=== PATIENT | male | born 1955 | race Caucasian/White ===

== ENCOUNTER 2016-08-23 22:35 | Emergency (ER) | payer OTHER ==
[~2016-08-23] VITALS: Ht 160 cm; Wt 65.3 kg
[~2016-08-23 22:35] MED LIST: CALC600T10 PO; CITA20TA4 PO; CYCL10TA PO; VITA50003 PO; ZOCO20TA PO
[2016-08-23 22:36] VITALS: BP 139/70
== END 2016-08-24 00:01 | disposition left against medical advice (07) ==
LOC: M ED 23:36
DX: M79.673 Pain in unspecified foot (principal)

== ENCOUNTER 2016-08-29 02:06 | Emergency (ER) | payer OTHER ==
[~2016-08-29] VITALS: Ht 160 cm; Wt 65.3 kg
[2016-08-29 07:39] VITALS: BP 108/56
== END 2016-08-29 07:40 | disposition home or self-care (01) ==
LOC: M ED 05:49
DX: H93.11 Tinnitus, right ear (principal); F17.200 Nicotine dependence, unspecified, uncomplicated; Z79.899 Other long term (current) drug therapy; Z88.8 Allergy status to other drugs, medicaments and biological substances

== ENCOUNTER → 2017-06-26 | Outpatient (CLI) | payer OTHER ==
[2017-06-26 10:36] LABS: HEMATOCRIT 45.3 % (42.0-52.0); HEMOGLOBIN 15.4 g/dl (14.0-18.0); MEAN CORPUSCULAR HEMOGLOBIN 32.4 pg (27.0-33.0); MEAN CORPUSCULAR VOLUME 95.2 fl (80.0-96.0); PLATELET COUNT, AUTOMATED 336 10^3/uL (150-450); RED BLOOD COUNT 4.76 10^6/uL (4.30-6.10); RED CELL DISTRIBUTION WIDTH 13.4 % (11.5-14.5); WHITE BLOOD COUNT 13.4 10^3/uL (4.0-10.0)
[2017-06-26 11:10] LABS: TOTAL 25(OH) VITAMIN D 30.4 NG/ML (30.0-100.0)
== END ==
LOC: M LAB 10:12
DX: F32.89 Other specified depressive episodes (principal); E55.9 Vitamin D deficiency, unspecified
CPT/HCPCS: 84443

== ENCOUNTER → 2017-07-10 | Outpatient (REF) | LOC: M SMT 08:08 | DX: M54.5 Low back pain (principal) ==

== ENCOUNTER 2018-03-25 13:53 | Emergency (ER) | payer OTHER ==
[2018-03-25 14:44] LABS: BASO % 0.2 % (0.0-1.0); EOS # 0.1 10^3/uL (0.0-0.50); EOS % 0.6 % (0.0-3.0); HEMATOCRIT 44.7 % (42.0-52.0); HEMOGLOBIN 15.1 g/dl (13.5-17.5); IMMATURE GRANULOCYTE % 0.5 % (0-3.0); LYMPH # 1.1 10^3/uL (1.5-4.5); LYMPH % 10.1 % (24.0-44.0); MEAN CORPUSCULAR HEMOGLOBIN 31.5 pg (27.0-33.0); MEAN CORPUSCULAR HGB CONC 33.8 g/dl (32.0-36.5); MEAN CORPUSCULAR VOLUME 93.1 fl (80.0-96.0); MONO # 0.9 10^3/uL (0.0-0.8); MONO % 7.8 % (0.0-5.0); NEUTROPHILS # 8.8 10^3/uL (1.8-7.7); NEUTROPHILS % 80.8 % (36.0-66.0); PLATELET COUNT, AUTOMATED 305 10^3/uL (150-450); RED CELL DISTRIBUTION WIDTH 13.5 % (11.5-14.5); WHITE BLOOD COUNT 10.8 10^3/uL (4.0-10.0)
[2018-03-25 14:50] LABS: ALBUMIN 3.2 GM/DL (3.2-5.2); ALBUMIN/GLOBULIN RATIO 0.89 (1.00-1.93); ALKALINE PHOSPHATASE 87 U/L (45-117); ALT/SGPT 17 U/L (12-78); ANION GAP 8 MEQ/L (8-16); AST/SGOT 16 U/L (7-37); BILIRUBIN,DIRECT 0.1 MG/DL (0.0-0.2); BILIRUBIN,TOTAL 0.4 MG/DL (0.2-1.0); BLOOD UREA NITROGEN 12 MG/DL (7-18); CALCIUM LEVEL 8.4 MG/DL (8.8-10.2); CARBON DIOXIDE LEVEL 23 MEQ/L (21-32); CHLORIDE LEVEL 109 MEQ/L (98-107); CREATININE FOR GFR 1.13 MG/DL (0.70-1.30); GLOMERULAR FILTRATION RATE > 60.0 (>49); GLUCOSE, FASTING 91 MG/DL (70-100); LIPASE 61 U/L (73-393); POTASSIUM SERUM 4.1 MEQ/L (3.5-5.1); SODIUM LEVEL 140 MEQ/L (136-145); TOTAL PROTEIN 6.8 GM/DL (6.4-8.2)
[2018-03-25] MEDS ORDERED: ISOVUE-370 76% 100ML VIAL (Q9967) As Ordered (14:58)
[2018-03-25] MEDS: NS 1,000 ML IV (14:59)
[2018-03-25] MEDS: MORPHINE 4 MG/ML 1ML VIAL/SYRINGE (J2270) IV (15:00)
== END 2018-03-25 16:01 | disposition home or self-care (01) ==
LOC: M ED 13:53
DX: R10.9 Unspecified abdominal pain (principal); F41.9 Anxiety disorder, unspecified; F32.9 Major depressive disorder, single episode, unspecified
CPT/HCPCS: J2270

== ENCOUNTER 2018-03-27 17:12 | Emergency (ER) | payer OTHER ==
[2018-03-27 18:26] LABS: BASO % 0.2 % (0.0-1.0); EOS # 0.1 10^3/uL (0.0-0.50); EOS % 1.4 % (0.0-3.0); HEMATOCRIT 41.6 % (42.0-52.0); HEMOGLOBIN 14.2 g/dl (13.5-17.5); IMMATURE GRANULOCYTE % 0.5 % (0-3.0); LYMPH # 1.2 10^3/uL (1.5-4.5); LYMPH % 13.7 % (24.0-44.0); MEAN CORPUSCULAR HEMOGLOBIN 31.8 pg (27.0-33.0); MEAN CORPUSCULAR HGB CONC 34.1 g/dl (32.0-36.5); MEAN CORPUSCULAR VOLUME 93.1 fl (80.0-96.0); MONO # 0.7 10^3/uL (0.0-0.8); MONO % 8.1 % (0.0-5.0); NEUTROPHILS # 6.6 10^3/uL (1.8-7.7); NEUTROPHILS % 76.1 % (36.0-66.0); PLATELET COUNT, AUTOMATED 303 10^3/uL (150-450); RED BLOOD COUNT 4.47 10^6/uL (4.30-6.10); RED CELL DISTRIBUTION WIDTH 13.3 % (11.5-14.5); WHITE BLOOD COUNT 8.7 10^3/uL (4.0-10.0)
[2018-03-27] MEDS: NS 1,000 ML IV (18:27)
[2018-03-27] MEDS: MORPHINE 4 MG/ML 1ML VIAL/SYRINGE (J2270) IV (18:28)
[2018-03-27 18:30] LABS: PROTHROMBIN TIME 13.3 SECONDS (12.1-14.4)
[2018-03-27 18:31] LABS: PARTIAL THROMBOPLASTIN TIME 33.2 SECONDS (25.4-37.6)
[2018-03-27 18:33] LABS: LACTIC ACID SEPSIS PROTOCOL 1.3 MMOL/L (0.4-2.0)
[2018-03-27 18:48] LABS: ALBUMIN 3.7 GM/DL (3.2-5.2); ALBUMIN/GLOBULIN RATIO 1.19 (1.00-1.93); ALKALINE PHOSPHATASE 82 U/L (45-117); ALT/SGPT 19 U/L (12-78); ANION GAP 8 MEQ/L (8-16); AST/SGOT 21 U/L (7-37); BILIRUBIN,DIRECT < 0.1 MG/DL (0.0-0.2); BILIRUBIN,TOTAL 0.4 MG/DL (0.2-1.0); BLOOD UREA NITROGEN 13 MG/DL (7-18); CALCIUM LEVEL 8.9 MG/DL (8.8-10.2); CARBON DIOXIDE LEVEL 24 MEQ/L (21-32); CHLORIDE LEVEL 105 MEQ/L (98-107); GLOMERULAR FILTRATION RATE > 60.0 (>49); GLUCOSE, FASTING 92 MG/DL (70-100); LDH LACTATE DEHYDROGENASE 215 U/L (87-241); LIPASE 63 U/L (73-393); POTASSIUM SERUM 3.7 MEQ/L (3.5-5.1); SODIUM LEVEL 137 MEQ/L (136-145); TOTAL PROTEIN 6.8 GM/DL (6.4-8.2)
[2018-03-27] MEDS: methylPREDNISolone INJ 125 MG/2 ML VIAL (J2930) IV (18:55)
[2018-03-27] MEDS: diphenhydrAMINE INJ 50MG/ML VIAL (J1200) IV (18:55)
[2018-03-27] MEDS: READI-CAT 2 PO ×2 (18:55→19:30)
[2018-03-27 20:38] LABS: KETONE, URINE AUTO RFX NEGATIVE (NEGATIVE); LEUKOCYTE ESTERASE UR AUTO RFX NEGATIVE (NEGATIVE); NITRITE, URINE AUTO RFX NEGATIVE (NEGATIVE); RBC, URINE AUTO RFX 0 /HPF (0-3); SPECIFIC GRAVITY UR AUTO RFX 1.003 (1.002-1.035); SQUAM EPITHELIAL CELL UR AURFX 0 /HPF (0-6); WBC, URINE AUTO RFX 0 /HPF (0-3)
[2018-03-27] MEDS ORDERED: ISOVUE-370 76% 100ML VIAL (Q9967) As Ordered (20:43)
== END 2018-03-27 22:46 | disposition home or self-care (01) ==
LOC: M ED 17:12
DX: C78.6 Secondary malignant neoplasm of retroperitoneum and peritoneum (principal); R19.7 Diarrhea, unspecified; F41.9 Anxiety disorder, unspecified; F32.9 Major depressive disorder, single episode, unspecified; Z87.891 Personal history of nicotine dependence; Z80.0 Family history of malignant neoplasm of digestive organs; Z88.8 Allergy status to other drugs, medicaments and biological substances; Z79.899 Other long term (current) drug therapy
CPT/HCPCS: J2270

== ENCOUNTER → 2018-04-17 | Outpatient (CLI) | payer OTHER ==
[~2018-04-17] MED LIST changes: -CALC600T10 PO; +CALC600T31 PO; +NORCOTAB PO; +PANT40TA3 PO; +PERC5TAB12 PO; +TRAM50TA2 PO; -VITA50003 PO; +VITA50005 PO
[2018-04-17 17:55] LABS: HEMATOCRIT 45.1 % (42.0-52.0); HEMOGLOBIN 15.1 g/dl (13.5-17.5); MEAN CORPUSCULAR HEMOGLOBIN 31.1 pg (27.0-33.0); MEAN CORPUSCULAR HGB CONC 33.5 g/dl (32.0-36.5); MEAN CORPUSCULAR VOLUME 92.8 fl (80.0-96.0); PLATELET COUNT, AUTOMATED 397 10^3/uL (150-450); RED BLOOD COUNT 4.86 10^6/uL (4.30-6.10); WHITE BLOOD COUNT 11.3 10^3/uL (4.0-10.0)
== END ==
LOC: M LAB 17:31
PROVIDERS: ATTEND Family Medicine
DX: K92.0 Hematemesis (principal)

== ENCOUNTER 2018-04-26 10:42 | Day surgery (SDC) | payer OTHER ==
[~2018-04-26] VITALS: Ht 160 cm; Wt 60.8 kg
[~2018-04-26 10:42] MED LIST changes: +LIDOCAINE 2% INJ 100 MG/5 ML SDV (FOR ANES.) As Ordered ONE; -NORCOTAB PO; -PANT40TA3 PO; +PROPOFOL 200 MG/20 ML VIAL As Ordered ONE; -TRAM50TA2 PO; +fentaNYL 100 MCG/2 ML INJECTION (J3010) As Ordered ONE
[2018-04-26] MEDS ORDERED: NS 1,000 ML IV ONE (11:00)
[2018-04-26] MEDS ORDERED: TRAM50TA2 PO ×2 (12:06)
[2018-04-26] MEDS ORDERED: PANT40TA3 PO (12:06)
[2018-04-26] MEDS ORDERED: ePHEDrine SULFATE 25 MG/5 ML(5MG/ML) SYRINGE As Ordered ONE (14:33)
--- NOTE | 2018-04-26 15:17 | ROOR ---
Patient Name: Jerzy Remy Procedure Date: 04/26/2018 2:04 PM Date of : 1955 Age: 62 Room: [facility] Gender: Male Note Status: Finalized Procedure: Upper GI endoscopy Indications: Abnormal CT of the GI tract, Patient with abdominal pain and CT suggesting carcinomatosis Providers: Aravind Mcginnis MD Referring MD: Michael Garcia DO Requesting Provider: Medicines: Monitored Anesthesia Care Complications: No immediate complications. Procedure: Pre-Anesthesia Assessment: - Prior to the procedure, a History and Physical was performed, and patient medications and allergies were reviewed. The patient is competent. The risks and benefits of the procedure and the sedation options and risks were discussed with the patient. All questions were answered and informed consent was obtained. Patient identification and proposed procedure were verified by the physician, the nurse and the meeting facilitator in the procedure room. Mental Status Examination: alert and oriented. CV Examination: regular rate and rhythm. Prophylactic Antibiotics: The patient does not require prophylactic antibiotics. Prior Anticoagulants: The patient has taken no previous anticoagulant or antiplatelet agents. ASA Grade Assessment: II - A patient with mild systemic disease. After reviewing the risks and benefits, the patient was deemed in satisfactory condition to undergo the procedure. The anesthesia plan was to use monitored anesthesia care (MAC). Immediately prior to administration of medications, the patient was re-assessed for adequacy to receive sedatives. The heart rate, respiratory rate, oxygen saturations, blood pressure, adequacy of pulmonary ventilation, and response to care were monitored throughout the procedure. The physical status of the patient was re-assessed after the procedure. The Endoscope was introduced through the mouth, and advanced to the second part of duodenum. The upper GI endoscopy was accomplished without difficulty. The patient tolerated the procedure well. Findings: Patchy mucosal changes characterized by consistent with ectopic gastric mucosa were found in the proximal esophagus. The entire examined stomach was normal. The first portion of the duodenum and second portion of the duodenum were normal. 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 - Normal stomach. - Normal first portion of the duodenum and second portion of the duodenum. - No specimens collected. Recommendation: - Discharge patient to home. - Resume previous diet. - Continue present medications. Aravind Mcginnis MD 04/26/2018 3:16:50 PM Number of Addenda: 0 Note Initiated On: 04/26/2018 2:04 PM Estimated Blood Loss: Estimated blood loss: none.
--- NOTE | 2018-04-26 15:21 | ROOR ---
Patient Name: Jerzy Remy Procedure Date: 04/26/2018 2:10 PM Date of : 1955 Age: 62 Room: [facility] Gender: Male Note Status: Finalized Procedure: Colonoscopy Indications: Abnormal CT of the GI tract, Abdominal pain with CT suggesting carcinomatosis Providers: Aravind Mcginnis MD Referring MD: Michael Garcia DO Requesting Provider: Medicines: Monitored Anesthesia Care Complications: No immediate complications. Procedure: Pre-Anesthesia Assessment: - Prior to the procedure, a History and Physical was performed, and patient medications and allergies were reviewed. The patient is competent. The risks and benefits of the procedure and the sedation options and risks were discussed with the patient. All questions were answered and informed consent was obtained. Patient identification and proposed procedure were verified by the physician, the nurse and the commercial real estate lender in the procedure room. Mental Status Examination: alert and oriented. CV Examination: regular rate and rhythm. Prophylactic Antibiotics: The patient does not require prophylactic antibiotics. Prior Anticoagulants: The patient has taken no previous anticoagulant or antiplatelet agents. ASA Grade Assessment: II - A patient with mild systemic disease. After reviewing the risks and benefits, the patient was deemed in satisfactory condition to undergo the procedure. The anesthesia plan was to use monitored anesthesia care (MAC). Immediately prior to administration of medications, the patient was re-assessed for adequacy to receive sedatives. The heart rate, respiratory rate, oxygen saturations, blood pressure, adequacy of pulmonary ventilation, and response to care were monitored throughout the procedure. The physical status of the patient was re-assessed after the procedure. The Colonoscope [id number] #[id number] was introduced through the anus and advanced to the cecum, identified by appendiceal orifice and ileocecal valve. The colonoscopy was performed without difficulty. The patient tolerated the procedure well. The quality of the bowel preparation was excellent. Findings: The perianal and digital rectal examinations were normal. The colon (entire examined portion) appeared normal. Impression: - The entire examined colon is normal. - No specimens collected. Recommendation: - Discharge patient to home. - Resume previous diet. - Continue present medications. Aravind Mcginnis MD 04/26/2018 3:21:34 PM Number of Addenda: 0 Note Initiated On: 04/26/2018 2:10 PM Estimated Blood Loss: Estimated blood loss: none.
[2018-04-26 15:26] VITALS: BP 102/58
== END 2018-04-26 15:41 | disposition home or self-care (01) ==
LOC: M OPP 10:42
PROVIDERS: ATTEND Surgery
DX: R93.3 Abnormal findings on diagnostic imaging of other parts of digestive tract (principal); R10.9 Unspecified abdominal pain; G47.30 Sleep apnea, unspecified; Z88.4 Allergy status to anesthetic agent
CPT/HCPCS: 43235; 45378; J3010

== ENCOUNTER 2018-04-27 23:38 | Observation (INO) | payer OTHER ==
[~2018-04-27] VITALS: Ht 160 cm; Wt 68.0 kg
[~2018-04-27 23:38] MED LIST changes: -LIDOCAINE 2% INJ 100 MG/5 ML SDV (FOR ANES.) As Ordered ONE; +PANT40TA3 PO; -PROPOFOL 200 MG/20 ML VIAL As Ordered ONE; +TRAM50TA2 PO; -fentaNYL 100 MCG/2 ML INJECTION (J3010) As Ordered ONE
[2018-04-28] MEDS ORDERED: NS 1,000 ML IV ONE
[2018-04-28] MEDS ORDERED: ONDANSETRON 4MG/2ML VIAL (J2405) IV ONE
[2018-04-28] MEDS ORDERED: ISOVUE-370 76% 100ML VIAL (Q9967) As Ordered ONE (00:07)
[2018-04-28 00:15] LABS: BASO # 0.1 10^3/uL (0.0-0.2); BASO % 0.5 % (0.0-1.0); EOS # 0.4 10^3/uL (0.0-0.50); EOS % 2.7 % (0.0-3.0); HEMATOCRIT 43.3 % (42.0-52.0); HEMOGLOBIN 14.8 g/dl (13.5-17.5); LYMPH # 1.7 10^3/uL (1.5-4.5); LYMPH % 13.4 % (24.0-44.0); MEAN CORPUSCULAR HEMOGLOBIN 31.6 pg (27.0-33.0); MEAN CORPUSCULAR HGB CONC 34.2 g/dl (32.0-36.5); MEAN CORPUSCULAR VOLUME 92.3 fl (80.0-96.0); MONO # 0.9 10^3/uL (0.0-0.8); MONO % 7.3 % (0.0-5.0); NEUTROPHILS # 9.7 10^3/uL (1.8-7.7); NEUTROPHILS % 75.6 % (36.0-66.0); PLATELET COUNT, AUTOMATED 388 10^3/uL (150-450); RED BLOOD COUNT 4.69 10^6/uL (4.30-6.10); WHITE BLOOD COUNT 12.9 10^3/uL (4.0-10.0)
[2018-04-28] MEDS: MORPHINE 4 MG/ML 1ML VIAL/SYRINGE (J2270) IV PRN ×2 (00:28→02:17)
[2018-04-28 00:35] LABS: ALBUMIN 3.5 GM/DL (3.2-5.2); ALT/SGPT 16 U/L (12-78); BILIRUBIN,DIRECT < 0.1 MG/DL (0.0-0.2); BILIRUBIN,TOTAL 0.2 MG/DL (0.2-1.0); BLOOD UREA NITROGEN 9 MG/DL (7-18); CARBON DIOXIDE LEVEL 27 MEQ/L (21-32); CHLORIDE LEVEL 108 MEQ/L (98-107); GLOMERULAR FILTRATION RATE > 60.0 (>49); GLUCOSE, FASTING 96 MG/DL (70-100); LIPASE 70 U/L (73-393); POTASSIUM SERUM 3.9 MEQ/L (3.5-5.1); SODIUM LEVEL 143 MEQ/L (136-145); TOTAL PROTEIN 6.6 GM/DL (6.4-8.2)
[2018-04-28 00:37] LABS: INR 0.93; PARTIAL THROMBOPLASTIN TIME 33.9 SECONDS (25.4-37.6); PROTHROMBIN TIME 12.5 SECONDS (12.1-14.4)
--- NOTE | 2018-04-28 01:11 | REPVR ---
EXAM: CT Abdomen and Pelvis With Contrast EXAM DATE/TIME: 04/27/2018 11:50 PM CLINICAL HISTORY: 62 years old, male; Pain; Abdominal pain; Generalized; Patient HX: Recent colonoscopy; Additional info: Abd pain, recent colonoscopy TECHNIQUE: Axial computed tomography images of the abdomen and pelvis with intravenous contrast. All CT scans at this facility use at least one of these dose optimization techniques: automated exposure control; mA and/or kV adjustment per patient size (includes targeted exams where dose is matched to clinical indication); or iterative reconstruction. Coronal and sagittal reformatted images were created and reviewed. CONTRAST: 100 ml of iso administered intravenously. COMPARISON: CT ABD/PEL W/IV ORAL CONTRAS 03/27/2018 8:41 PM FINDINGS: Lower thorax: Minimal bibasilar bullous change. ABDOMEN: Liver: Normal. No mass. Gallbladder and bile ducts: Normal. No calcified stones. No ductal dilation. Pancreas: Normal. No ductal dilation. Spleen: Normal. No splenomegaly. Adrenals: Normal. No mass. Kidneys and ureters: There is a left renal cyst measuring up to 20 mm. Stomach and bowel: There are some mildly distended segments of small bowel in the left pelvis are likely material and wall thickening. This is adjacent to a segment which demonstrates all thickening and is collapsed. Other segments borderline in size. Some degree of obstruction is suggested and findings may reflect enteritis, however, serosal invasion by peritoneal carcinomatosis would certainly be a consideration. Appendix: The appendix is not definitely seen although there may be partial visualization of the origin. There is induration and confluence between bowel segments in the lower pelvis in the area of the appendix, bladder and adjacent small bowel segments. There is minimal fluid adjacent to the rectum which may be loculated. PELVIS: Bladder: Within normal limits but is confluent with some adjacent structures. Reproductive: Unremarkable as visualized. ABDOMEN and PELVIS: Intraperitoneal space: Multiple lobular and somewhat ill-defined nodules throughout the omentum with suggestion of surrounding induration. The mesentery also demonstrates ill-defined nodules and slight induration. Bones/joints: Mild degenerative changes of the lumbar spine. Soft tissues: Unremarkable. Vasculature: Normal. No abdominal aortic aneurysm. Lymph nodes: Normal. No enlarged lymph nodes. IMPRESSION: 1. Omental and mesenteric infiltration and nodularity which appears increased overall since 03/27/2018 consistent with peritoneal carcinomatosis. 2. Multiple segments of small bowel wall thickening with some associated dilated segments containing stool-like material which has the appearance of enteritis, however, serosal implantation by carcinomatosis is suspected with some secondary obstruction which appears increased since the prior study. 3. There is confluence around the tip of the cecum, urinary bladder and adjacent small bowel segments which suggests the possibility of carcinoid as a source. 4. Minimal peritoneal fluid which is increased since the prior study and may be loculated adjacent to the rectum. Electronically signed by: Uriel Rainey On 04/28/2018 01:10:45 AM
[2018-04-28] MEDS ORDERED: PIPERACILLIN/TAZOBACTAM SOD 3.375 GM in D5W MINI-BAG PLUS 50 ML IV ONE (02:30)
[2018-04-28] MEDS ORDERED: MORPHINE 4 MG/ML 1ML VIAL/SYRINGE (J2270) IV PRN (02:45)
[2018-04-28 03:45] VITALS: BP 126/71
[2018-04-28] MEDS: KETOROLAC 30 MG/ML VIAL (J1885) IV PRN ×2 (04:14→10:22)
[2018-04-28 06:00] VITALS: BP 109/61
[2018-04-28] MEDS ORDERED: ONDANSETRON 4MG/2ML VIAL (J2405) IV PRN (12:30)
[2018-04-28] MEDS: CitaloPRAM (CeleXA) 20 MG TAB PO SCH (13:26)
[2018-04-28] MEDS: SENOKOT S TAB PO SCH ×2 (13:26→21:06)
[2018-04-28] MEDS: NORCO, ANEXSIA 5/325MG TABLET (HYDROcodone/ACETAMINOPHEN) PO PRN ×2 (13:27→20:05)
[2018-04-28] MEDS: HEPARIN SOD (PORCINE) 5000 UNITS/ML VIAL SC SCH ×2 (13:27→21:06)
[2018-04-28 14:00] VITALS: BP 111/59
[2018-04-28] MEDS: IBUPROFEN 800 MG TAB PO SCH (17:36)
[2018-04-28 22:00] VITALS: BP 130/72
[2018-04-29] MEDS: NORCO, ANEXSIA 5/325MG TABLET (HYDROcodone/ACETAMINOPHEN) PO PRN ×2 (00:43→05:48)
[2018-04-29] MEDS: IBUPROFEN 800 MG TAB PO SCH ×2 (01:30→09:19)
[2018-04-29] MEDS: HEPARIN SOD (PORCINE) 5000 UNITS/ML VIAL SC SCH (05:47)
[2018-04-29 06:00] VITALS: BP 108/60
--- NOTE | 2018-04-29 08:52 | HPE ---
DATE OF ADMISSION: 04/28/2018 CHIEF COMPLAINT: Abdominal pain. HISTORY OF PRESENT ILLNESS: The patient is 62-year-old male patient of Dr. Mcginnis's who underwent colonoscopy on . He has a recent history of increasing persistent abdominal pains. Had a CT scan done at the end of March showing possible carcinomatosis, therefore, he was seen by Dr. Mcginnis for upper and lower endoscopy on to look for a source of this. Apparently the colonoscopy and EGD were uneventful, no obvious signs of any lesions, therefore, the plan was just followup for a CT-guided biopsy this coming Monday in radiology. However, overnight he has had increasing abdominal pains so he came into the emergency room for evaluation. CT does not show any perforation of bowel but there is some free fluid in the left abdomen that is greater than on previous CT scan and because of his uncontrolled abdominal pains I was asked to admit him. He has been having some increasing difficulty tolerating foods, abdominal bloating, nausea, and occasional emesis. No fevers or chills. He is still having bowel movements but they are small and loose and his abdominal pain has been getting progressively worse. He is on tramadol outpatient but that is not controlling his pain at all anymore. PAST MEDICAL HISTORY: Anxiety, vitamin D deficiency, hypercholesterolemia. PAST SURGICAL HISTORY: Right ankle surgery, left shoulder surgery, right shoulder surgery, foot surgery. FAMILY HISTORY: Noncontributory. SOCIAL HISTORY: Former tobacco user, no current smoking. Denies drug or alcohol abuse. REVIEW OF SYSTEMS: Pertinent positives as stated in the history of present illness. PHYSICAL EXAMINATION: GENERAL: Alert and oriented times three. No acute distress. VITALS: Temperature 97.2, pulse 53, respirations 18, blood pressure 126/71, pulse ox 98% on 2 liters nasal cannula. HEENT: Pupils equal round react to light accommodation. HEART: S1, S2 regular rate and rhythm. LUNGS: Clear to bilaterally. ABDOMEN: Soft, nontender, nondistended. EXTREMITIES: No clubbing, cyanosis or edema. LABORATORY DATA: White count 12.9, hemoglobin 14.8, platelets 388, lactic acid 3.2. Followup was down to 0.7 after 4 hours, potassium 3.9, creatinine 1.1. IMAGING: CT abdomen and pelvis showed omental and mesenteric infiltration nodularity which appears increased overall from the CAT scan on 03/27 of this year. Multiple segments of small bowel wall thickening with some associated dilated segments containing stool like material which has the appearance of enteritis, however, serosal implantation by carcinomatosis suspected with some secondary obstruction that appears increased from prior study. There is confluence around the tip of the cecum, urinary bladder, and adjacent small bowel segments which suggest the possibility of a carcinoid as a source. Minimal peritoneal fluid which has increased since prior study and may be loculated adjacent to the rectum. ASSESSMENT AND PLAN: The patient 62-year-old male with uncontrolled abdominal pain status post colonoscopy on he came into the emergency room (ER) for concerns of possible perforation from his colonoscopy, however, there is no signs of any the injury on his CAT scan. CT does, however, show progression of his carcinomatosis and intra-abdominal disease from previous scan a month ago. RECOMMENDATIONS: Admit him overnight to observation, keep him on regular diet and pain control. I will work on getting his pain controlled, switch him from IV to by mouth medications and then once he is controlled he will be discharged home to continue with his workup as an outpatient. All of his questions were answered.
[2018-04-29] MEDS ORDERED: NORCOTAB PO (08:59)
[2018-04-29] MEDS: SENOKOT S TAB PO SCH (09:18)
[2018-04-29] MEDS: CitaloPRAM (CeleXA) 20 MG TAB PO SCH (09:18)
--- NOTE | 2018-04-30 16:26 | DSES ---
DATE OF ADMISSION: 04/28/2018 DATE OF DISCHARGE: 04/29/2018 ADMISSION DIAGNOSIS: Abdominal pain. DISCHARGE DIAGNOSIS: Abdominal pain with peritoneal carcinomatosis. HOSPITAL COURSE: The patient is a 62-year-old male who presented in the late evening of 04/27/2018 to into the emergency room with complaints of abdominal pains status post colonoscopy on . Imaging was obtained of the abdomen which showed peritoneal carcinomatosis, which he had known from a CAT scan a month ago and that was the reason why they did the colonoscopy. He has had persistent pains for over a month. This current CAT scan shows progression of his disease from previous, but no signs of any perforation status post colonoscopy. He was switched over from tramadol at home to [place]. His pain is currently well-controlled. Plan is to discharge home today. He will followup with oncology for a biopsy this coming Monday and will followup with Dr. Mcginnis in the office as needed.
== END 2018-04-29 10:15 | disposition home or self-care (01) ==
LOC: M ED 23:38 → EDBD 23:38 → M ED INP 04-28 02:20 → M MS5PR 04-28 03:42
PROVIDERS: ADMIT Surgery; ATTEND Surgery
DX: C48.2 Malignant neoplasm of peritoneum, unspecified (principal); R10.9 Unspecified abdominal pain; E78.00 Pure hypercholesterolemia, unspecified; E55.9 Vitamin D deficiency, unspecified; Z87.891 Personal history of nicotine dependence; Z79.899 Other long term (current) drug therapy
CPT/HCPCS: 36415; 74177; 80048; 80076; 83605; 83690; 85025; 85610; 85730; 87040; 93041; 96372; 96374; 96375; 96376; 99285; J1885; J2270; J2405; J2543; Q9967

== ENCOUNTER → 2018-05-02 | Outpatient (CLI) | payer OTHER ==
[~2018-05-02] MED LIST changes: +GASTROGRAFIN SOLUTION 30ML (Q9963) As Ordered ONE; +LIDOCAINE 1% MDV 20ML VIAL As Ordered ONE; +NORCOTAB PO
[2018-05-02 10:11] LABS: INR 0.98; PROTHROMBIN TIME 13.1 SECONDS (12.1-14.4)
[2018-05-02 10:12] LABS: PARTIAL THROMBOPLASTIN TIME 39.8 SECONDS (25.4-37.6)
--- NOTE | 2018-05-02 18:34 | REP ---
The procedure was performed under the personal supervision of Dr. Batista. The patient has a history of omental and mesenteric infiltration and nodularity seen on a previous CT scan dated 04/28/2018. A nodule in the anterior mid abdomen was selected for biopsy. The risks and benefits of the procedure were explained to the patient and informed consent was obtained. The peritoneal nodule was localized using CT guidance. The skin was prepped and draped in a sterile fashion. 1% lidocaine was used as a local anesthetic. Using CT guidance a 17/18 gauge coaxial needle biopsy system was inserted and advanced into the nodule. Six core biopsy samples were obtained and sent to lab. The patient tolerated the procedure well and there were no immediate complications. After the appropriate amount of monitored convalescence the patient was discharged from the department. Reviewed by LIBERTAD Bennett 05/02/2018 04:37 P Electronically Signed by Wagner Batista MD 05/02/2018 06:26 P
== END ==
LOC: M RADPRO 08:51 → M LAB 08:51
PROVIDERS: ATTEND Surgery
DX: K66.8 Other specified disorders of peritoneum (principal)
CPT/HCPCS: 36415; 49180; 77012; 85610; 85730; 88305; Q9963

== ENCOUNTER 2018-05-25 11:44 | Day surgery (SDC) | payer OTHER ==
[~2018-05-25] VITALS: Ht 160 cm; Wt 59.3 kg
[~2018-05-25 11:44] MED LIST changes: -GASTROGRAFIN SOLUTION 30ML (Q9963) As Ordered ONE; -LIDOCAINE 1% MDV 20ML VIAL As Ordered ONE
[2018-05-25] MEDS ORDERED: LR 1,000 ML IV ONE (12:30)
--- NOTE | 2018-05-25 12:35 | ECGEPIP ---
Stationary ECG Study [facility] Test Date: 2018-05-25 Pat Name: CL SEAY Department: Room: - Gender: M Induction Coordination Power Engineer: : [id number] Requested By: Howard Garcia Order Number: [id number] Reading MD: Puma Leary Measurements Intervals [place] Rate: 79 P: 83 CA: 154 QRS: 63 QRSD: 102 T: 63 QT: 369 QTc: 425 Interpretive Statements Normal sinus rhythm Normal EKG No significant change when compared to prior tracing of 12/10/2012 Electronically Signed On 05-25-2018 12:35:21 EST by Puma Leary
[2018-05-25] MEDS ORDERED: ONDANSETRON 4MG/2ML VIAL (J2405) As Ordered ONE ×2 (14:56→17:39)
[2018-05-25] MEDS ORDERED: dexameTHASONE 4 MG/ML 1ML VIAL (J1100) As Ordered ONE ×2 (14:56→14:58)
[2018-05-25] MEDS ORDERED: PROPOFOL 200 MG/20 ML VIAL As Ordered ONE (14:56)
[2018-05-25] MEDS ORDERED: GLYCOPYRROLATE INJ 0.2 MG/ML 2 ML VIAL As Ordered ONE (14:56)
[2018-05-25] MEDS ORDERED: LIDOCAINE 2% INJ 100 MG/5 ML SDV (FOR ANES.) As Ordered ONE (14:56)
[2018-05-25] MEDS ORDERED: NEOSTIGMINE 10 MG/10 ML VIAL (J2710) As Ordered ONE (14:56)
[2018-05-25] MEDS ORDERED: fentaNYL 100 MCG/2 ML INJECTION (J3010) As Ordered ONE ×2 (14:57→17:43)
[2018-05-25] MEDS ORDERED: MIDAZOLAM INJ 2 MG/2 ML VIAL (J2250) As Ordered ONE (14:57)
[2018-05-25] MEDS ORDERED: ROCURONIUM BROMIDE 50 MG/5 ML VIAL As Ordered ONE (15:02)
[2018-05-25] MEDS ORDERED: BUPIVACAINE HCL 0.25% 30 ML VIAL As Ordered ONE (15:25)
[2018-05-25] MEDS: fentaNYL 100 MCG/2 ML INJECTION (J3010) IV PRN ×4 (17:45→18:00)
[2018-05-25] MEDS ORDERED: NORCO, ANEXSIA 5/325MG TABLET (HYDROcodone/ACETAMINOPHEN) PO PRN (18:00)
[2018-05-25] MEDS ORDERED: LR 1,000 ML IV SCH (18:00)
[2018-05-25] MEDS ORDERED: ONDANSETRON 4MG/2ML VIAL (J2405) IV PRN (18:00)
[2018-05-25 19:10] VITALS: BP 117/56
[2018-05-25] MEDS ORDERED: NORCOTAB PO (21:08)
--- NOTE | 2018-05-26 09:29 | RO ---
DATE OF PROCEDURE: 05/25/2018 PREOPERATIVE DIAGNOSIS: Probable abdominal carcinomatosis. POSTOPERATIVE DIAGNOSIS: Abdominal carcinomatosis. PROCEDURE PERFORMED: Diagnostic laparoscopy with biopsy of metastatic omental nodule. SURGEON: Dr. Aravind Mcginnis MEDICAL CLERICAL ASSISTANT: ANESTHESIA: General. INDICATIONS FOR PROCEDURE: Patient is a 62-year-old man who was seen in the emergency department in March for some left lower quadrant abdominal pain. A CT scan was done which showed multiple nodules within the abdomen suggestive of carcinomatosis. He subsequently underwent an upper endoscopy and colonoscopy which showed no evidence of malignancy. A CT-guided needle biopsy was attempted but without pathology results. He is now for laparoscopy and biopsy. DESCRIPTION OF PROCEDURE: The patient was brought to the operating room and placed supine on the operating table. He was placed under general endotracheal anesthesia. The patient's abdomen was prepped and draped in a sterile fashion. 0.25% Marcaine was infiltrated at the trocar sites prior to insertion. A short incision was made in the right lower quadrant and a Veress needle was inserted. After a positive hanging drop test the abdomen was inflated with carbon dioxide gas but pressures were high. The Veress needle was removed, and a second insertion yielded a positive hanging drop test. The abdomen was inflated and on this occasion, the insufflation went without difficulty. A 5 mm port was placed over a 5 mm scope, and this was advanced through the abdominal wall without difficulty. Insufflation continued. The laparoscope was placed. Initial exam revealed some mildly dilated loops of small bowel in the lower abdomen. There was no evidence of any bowel injury from the Veress needle or trocar placement. Inspection revealed multiple small white-serrano plaques of malignant appearing tissue on the peritoneal surface of the abdominal wall. There were a number of these across the upper abdomen. Inspection showed multiple thickened, pale appearing areas within the greater omentum. A second 5 mm port was placed in the right upper quadrant. The camera was shifted to this area. The patient was tilted to a slight head down position. Inspection in the pelvis revealed extensive malignant appearing plaques of tissue on the anterior pelvic wall. The small bowel was noted to have nodules on the mesentery in areas. The cecum was identified and thickening in the area of the appendix was noted, although the appendix appeared to extend retrocecally. There were no definite metastatic deposits within the liver. A 11 mm trocar was placed along the midline just above the umbilicus. Using a Harmonic scalpel, an approximately 3 cm metastatic deposit in the edge of the greater omentum was excised, and this was placed in an Endopouch. Hemostasis was ensured. Several photographs were taken for the patient's record. The patient was placed flat and the abdomen was deflated and the trocars were removed. The specimen was recovered through the supraumbilical site, though this required extending the fascial incision somewhat. An approximately 3-1/2 cm tissue was identified, and this was sent for permanent pathology. The fascia along the midline was closed with interrupted simple sutures of #2-0 Vicryl. The skin incisions were all closed with buried #5-0 Vicryl and Steri-Strips. The patient tolerated the procedure well without apparent complication. He was awakened in the operating room, extubated and moved to the recovery room in stable condition.
== END 2018-05-25 19:15 | disposition home or self-care (01) ==
LOC: M SDC 11:44
PROVIDERS: ATTEND Surgery
DX: C78.6 Secondary malignant neoplasm of retroperitoneum and peritoneum (principal); G47.30 Sleep apnea, unspecified; F41.9 Anxiety disorder, unspecified; F32.9 Major depressive disorder, single episode, unspecified; Z79.899 Other long term (current) drug therapy
CPT/HCPCS: 49321; 88305; 93005; J1100; J2250; J2405; J2710; J3010

== ENCOUNTER → 2018-06-25 | Outpatient (CLI) | payer OTHER ==
[~2018-06-25] MED LIST changes: +HYDR-2808 PO; +HYDR-3713 PO; +LEVS0.124 SL
--- NOTE | 2018-06-25 11:03 | REP ---
Clinical: Preoperative assessment . Comparison: 12/05/2014 . Technique: PA and lateral. Findings: The mediastinum and cardiac silhouette are normal. The lung talamantes are clear and without acute consolidation, effusion, or pneumothorax. The skeletal structures are intact and normal. Impression: 1. No acute cardiopulmonary process. Electronically Signed by Paul Dillard MD 06/25/2018 10:55 A
== END ==
LOC: M SMT 10:35
PROVIDERS: ATTEND Thoracic Surgery (Cardiothoracic Vascular Surgery)
DX: Z01.818 Encounter for other preprocedural examination (principal)

== ENCOUNTER 2018-06-27 10:11 | Day surgery (SDC) | payer OTHER ==
[~2018-06-27] VITALS: Ht 160 cm; Wt 54.0 kg
[~2018-06-27 10:11] MED LIST changes: -HYDR-2808 PO; -HYDR-3713 PO
[2018-06-27] MEDS ORDERED: LR 1,000 ML IV ONE (10:30)
[2018-06-27] MEDS ORDERED: MUPIROCIN 2% OINT 22 GM TUBE TOP ONE (10:30)
[2018-06-27 10:39] LABS: BASO % 0.5 % (0.0-1.0); EOS # 0.2 10^3/uL (0.0-0.50); EOS % 2.1 % (0.0-3.0); HEMATOCRIT 41.6 % (42.0-52.0); LYMPH % 11.7 % (24.0-44.0); MEAN CORPUSCULAR HEMOGLOBIN 31.3 pg (27.0-33.0); MEAN CORPUSCULAR HGB CONC 33.7 g/dl (32.0-36.5); MEAN CORPUSCULAR VOLUME 93.1 fl (80.0-96.0); MONO # 0.8 10^3/uL (0.0-0.8); MONO % 8.8 % (0.0-5.0); NEUTROPHILS # 6.6 10^3/uL (1.8-7.7); NEUTROPHILS % 76.4 % (36.0-66.0); PLATELET COUNT, AUTOMATED 433 10^3/uL (150-450); RED BLOOD COUNT 4.47 10^6/uL (4.30-6.10); WHITE BLOOD COUNT 8.6 10^3/uL (4.0-10.0)
[2018-06-27] MEDS ORDERED: BUPIVACAINE LIPOSOME/PF 1.3% 20ML VIAL (13.3MG/ML)(EXPAREL)(C9290 PER1MG) As Ordered ONE (10:46)
[2018-06-27] MEDS ORDERED: LIDOCAINE 1% SDV INJ 30 ML VIAL As Ordered ONE (10:46)
[2018-06-27] MEDS ORDERED: HEPARIN SOD (PORCINE) 5000 UNITS/ML VIAL As Ordered ONE (10:46)
[2018-06-27 10:53] LABS: PROTHROMBIN TIME 13.3 SECONDS (12.1-14.4)
[2018-06-27 10:54] LABS: PARTIAL THROMBOPLASTIN TIME 35.5 SECONDS (25.4-37.6)
[2018-06-27 11:10] LABS: BLOOD UREA NITROGEN 8 MG/DL (7-18); CALCIUM LEVEL 9.3 MG/DL (8.8-10.2); CARBON DIOXIDE LEVEL 30 MEQ/L (21-32); CHLORIDE LEVEL 104 MEQ/L (98-107); CREATININE FOR GFR 0.94 MG/DL (0.70-1.30); GLOMERULAR FILTRATION RATE > 60.0 (>49); GLUCOSE, FASTING 100 MG/DL (70-100); POTASSIUM SERUM 4.9 MEQ/L (3.5-5.1); SODIUM LEVEL 138 MEQ/L (136-145)
[2018-06-27] MEDS ORDERED: HYDR-2808 PO (11:47)
[2018-06-27] MEDS ORDERED: HYDR-3713 PO (11:47)
[2018-06-27] MEDS ORDERED: LIDOCAINE 2% INJ 100 MG/5 ML SDV (FOR ANES.) As Ordered ONE (12:52)
[2018-06-27] MEDS ORDERED: PROPOFOL 200 MG/20 ML VIAL As Ordered ONE (12:52)
[2018-06-27] MEDS ORDERED: MIDAZOLAM INJ 2 MG/2 ML VIAL (J2250) As Ordered ONE (12:53)
[2018-06-27] MEDS ORDERED: ONDANSETRON 4MG/2ML VIAL (J2405) As Ordered ONE (12:53)
[2018-06-27] MEDS ORDERED: fentaNYL 100 MCG/2 ML INJECTION (J3010) As Ordered ONE (12:53)
[2018-06-27] MEDS ORDERED: KETAMINE HCL 200 MG/20 ML VIAL As Ordered ONE (13:06)
[2018-06-27] MEDS ORDERED: KETOROLAC 60 MG/2 ML VIAL (J1885) As Ordered ONE (13:15)
--- NOTE | 2018-06-27 14:14 | REP ---
Clinical: Status post Zdwblj-E-Cdfl. . Comparison: 06/25/2018 . Findings: The mediastinum and cardiac silhouette are stable and within normal limits for portable technique. Wymcrk-X-Ewom identified with tip in the SVC. The lung talamantes are clear without acute consolidation, effusion, or pneumothorax. Skeletal structures are intact. Impression: No acute cardiopulmonary process appreciated. No pneumothorax. Electronically Signed by Paul Dillard MD 06/27/2018 02:06 P
--- NOTE | 2018-06-27 14:17 | REP ---
Clinical: Metastatic colon cancer for Ekpiwl-N-Syog placement. Technique: Intraoperative fluoroscopic imaging using portable C-arm technique. Findings: Two intraoperative images demonstrate satisfactory Cykrxi-R-Pmwg placement with tip in the SVC. Total fluoroscopic time 14 seconds. Impression: Status post Kswdii-N-Twom placement. Electronically Signed by Paul Dillard MD 06/27/2018 02:08 P
[2018-06-27] MEDS ORDERED: PERCOCET 5MG/325MG TAB PO PRN (14:30)
[2018-06-27 15:45] VITALS: BP 101/56
--- NOTE | 2018-06-28 08:00 | RO ---
DATE OF PROCEDURE: 06/27/2018 PREPROCEDURE DIAGNOSIS: Metastatic abdominal cancer probably secondary to colon or appendix. Need for vascular access for chemotherapy. POSTPROCEDURE DIAGNOSIS: Metastatic abdominal cancer probably secondary to colon or appendix. Need for vascular access for chemotherapy. PROCEDURE: Insertion of left subclavian power port with fluoroscopic control. SURGEON: Dr. Aravind Pearce PATTERN TECHNICIAN: ANESTHESIA: FINDINGS: All contours were smooth at the end of the procedure with the catheter replaced at the junction of the right atrium and the superior vena cava (SVC). DESCRIPTION OF PROCEDURE: Under satisfactory MAC anesthesia, the patient prepped and draped in the usual sterile fashion. The subclavian fossa was infiltrated with 1% lidocaine and the subclavian vein found on the second pass. A wire was placed without difficulty and its position confirmed by fluoroscopy. Approximately 2 cm below the subclavian fossa, incision was made after infiltrating the skin and subcutaneous tissue with Exparel. A subcutaneous pocket was then created by use of both electrocautery and blunt dissection. The wire tract was incised, dilated and a peel away introducer placed. The catheter was placed with the numbers down into the right atrium. A tunnel was created from the catheter site to the port site and the catheter pulled through to the junction of the right atrium and SVC under fluoroscopic control. The catheter was cut to an appropriate size, collar was placed and the port was connected. The port was aspirated and flushed with heparinized saline. This was followed by a final flush of 100 units per mL of heparin and saline. The port was secured to the chest wall with two #2-0 silk sutures and the subcutaneous tissue was closed with running #3-0 Vicryl suture and the skin was closed with running #4-0 Monopril subcuticular suture. The patient tolerated the procedure well and left the operating room in satisfactory condition for the recovery room.
== END 2018-06-27 15:47 | disposition home or self-care (01) ==
LOC: M SDC 10:11
PROVIDERS: ATTEND Thoracic Surgery (Cardiothoracic Vascular Surgery)
DX: C78.6 Secondary malignant neoplasm of retroperitoneum and peritoneum (principal); R10.9 Unspecified abdominal pain; G89.29 Other chronic pain; R29.898 Other symptoms and signs involving the musculoskeletal system; F41.9 Anxiety disorder, unspecified; F32.9 Major depressive disorder, single episode, unspecified; R06.83 Snoring; G47.33 Obstructive sleep apnea (adult) (pediatric); Z91.048 Other nonmedicinal substance allergy status; Z79.899 Other long term (current) drug therapy; Z87.81 Personal history of (healed) traumatic fracture; Z87.891 Personal history of nicotine dependence
CPT/HCPCS: 36415; 36561; 71045; 76000; 80048; 85025; 85610; 85730; C1788; C9290; J0690; J1885; J2250; J2405; J3010

== ENCOUNTER 2018-07-09 02:22 | Emergency (ER) | payer OTHER ==
[~2018-07-09] VITALS: Ht 160 cm; Wt 54.0 kg
[~2018-07-09 02:22] MED LIST changes: +HYDR-2808 PO; +HYDR-3713 PO; +MEGA625S PO
[2018-07-09 03:07] LABS: HEMATOCRIT 38.3 % (42.0-52.0); MEAN CORPUSCULAR HEMOGLOBIN 30.9 pg (27.0-33.0); MEAN CORPUSCULAR HGB CONC 33.9 g/dl (32.0-36.5); PLATELET COUNT, AUTOMATED 337 10^3/uL (150-450); RED BLOOD COUNT 4.21 10^6/uL (4.30-6.10)
[2018-07-09 03:27] LABS: WHITE BLOOD COUNT 41.9 10^3/uL (4.0-10.0)
[2018-07-09 03:29] LABS: ALBUMIN 3.1 GM/DL (3.2-5.2); ALT/SGPT 14 U/L (12-78); BILIRUBIN,DIRECT 0.1 MG/DL (0.0-0.2); BILIRUBIN,TOTAL 0.5 MG/DL (0.2-1.0); BLOOD UREA NITROGEN 12 MG/DL (7-18); CALCIUM LEVEL 8.4 MG/DL (8.8-10.2); CARBON DIOXIDE LEVEL 25 MEQ/L (21-32); CHLORIDE LEVEL 104 MEQ/L (98-107); CREATININE FOR GFR 0.87 MG/DL (0.70-1.30); GLOMERULAR FILTRATION RATE > 60.0 (>49); GLUCOSE, FASTING 80 MG/DL (70-100); LIPASE 56 U/L (73-393); LYMPHOCYTES 2 % (16-52); MONOCYTES 3 % (0-8); NEUTROPHILS 95 % (35-75); PLATELET ESTIMATE NORMAL (NORMAL); SODIUM LEVEL 138 MEQ/L (136-145); TOTAL PROTEIN 6.4 GM/DL (6.4-8.2)
[2018-07-09 03:30] LABS: TOXIC VACUOLATION 1+
[2018-07-09] MEDS ORDERED: NS 1,000 ML IV ONE (03:45)
[2018-07-09] MEDS ORDERED: MORPHINE 4 MG/ML 1ML VIAL/SYRINGE (J2270) IV PRN (03:45)
[2018-07-09] MEDS ORDERED: ONDANSETRON 4MG/2ML VIAL (J2405) IV ONE (03:45)
[2018-07-09] MEDS ORDERED: GASTROGRAFIN SOLUTION 30ML (Q9963) As Ordered ONE (03:57)
--- NOTE | 2018-07-09 04:14 | REP ---
Clinical: Port placement. Comparison: 06/27/2018. Findings: Mediastinum and cardiac silhouette are within normal limits. Wqsaqp-M-Tpuu identified with tip in the SVC. Lung talamantes are clear. No consolidation, effusion, or pneumothorax. Skeletal structures intact. Impression: 1. Imhoac-Z-Blrn with tip in the SVC. Electronically Signed by Paul Dillard MD 07/09/2018 04:05 A
[2018-07-09] MEDS: GASTROGRAFIN SOLUTION 30ML PO SCH ×2 (04:20→04:44)
[2018-07-09] MEDS ORDERED: ISOVUE-370 76% 100ML VIAL (Q9967) As Ordered ONE (06:08)
--- NOTE | 2018-07-09 07:30 | REPVR ---
EXAM: CT Abdomen and Pelvis With Contrast EXAM DATE/TIME: 07/09/2018 6:22 AM CLINICAL HISTORY: 62 years old, male; Pain; Abdominal pain; Prior surgery; Surgery date: 6+ months; Surgery type: Omental adenocarcinoma; Additional info: Abd pain, HX of metastatic CA TECHNIQUE: Axial computed tomography images of the abdomen and pelvis with intravenous contrast. All CT scans at this facility use at least one of these dose optimization techniques: automated exposure control; mA and/or kV adjustment per patient size (includes targeted exams where dose is matched to clinical indication); or iterative reconstruction. Coronal and sagittal reformatted images were created and reviewed. CONTRAST: Contrast Material: 100 ml of iso 370; Contrast Route: iv COMPARISON: CT ABD/PEL W/IV CONTRAST ONLY 04/28/2018 12:00 AM FINDINGS: Lower thorax: There is minimal, nonspecific dependent density in the lung bases. There is a calcified granuloma in the left lung base. ABDOMEN: Liver: There are no focal liver lesions present. Gallbladder and bile ducts: The gallbladder is normal with no stones or biliary ductal dilation. Pancreas: The pancreas is normal with no ductal dilation. Spleen: The spleen is normal. Adrenals: The adrenal glands are normal. Kidneys and ureters: There is new mild right-sided hydronephrosis. The right ureter is dilated into the pelvis, but no stones are identified. The nephrograms appear fairly symmetric. There is a stable small cyst in the left kidney lower pole. Stomach and bowel: Mild diverticulosis is present in the distal colon. There is long segment and short segment thickening of multiple small bowel loops, most prominently affecting a loop of bowel in the left midabdomen. This bowel loop did appear thickened on the prior exam as well. Thickening of the loops in the right upper quadrant and lower quadrant appears more pronounced on the prior exam. There is spiculated poorly defined soft tissue nodularity in the mesentery in the right lower quadrant poorly measuring 2.9 x 3.3 cm compared to 2.2 x 2.5 cm previously. There is mild dilation of multiple small bowel loops. Appendix: The appendix is not specifically identified. PELVIS: Bladder: The bladder is unremarkable. No stones identified. Reproductive: The prostate gland demonstrates mild nonspecific enlargement. The seminal vesicles are normal. ABDOMEN and PELVIS: Intraperitoneal space: Nodular thickening of the omentum is again seen, grossly similar to the prior exam. There is poorly defined soft tissue in the pelvis above the bladder, which seems to be a a site of peritoneal implant. There is no free intraperitoneal air. Bones/joints: Degenerative endplate changes are seen at multiple levels in the visualized spine. No suspicious osseous lesions. No acute fractures or dislocations. Soft tissues: See Stomach And Bowel Finding. Vasculature: The aorta demonstrates mild atherosclerotic calcification. Lymph nodes: Normal. No enlarged lymph nodes. IMPRESSION: 1. Omental nodularity and thickening again seen, similar to the prior exam and consistent with the given history of omental adenocarcinoma. 2. Multiple sites of short segment and long segment thickening of the small bowel, some of which was present previously, but there appear to be additional sites of new or worsening thickening as well, likely due to metastatic involvement of the small bowel. 3. Increased size of soft tissue nodularity in the mesentery in the right lower quadrant. 4. Right-sided hydronephrosis, with dilation of the ureter into the pelvis but no stones identified. The obstruction is probably related to a peritoneal implant in the pelvis above the bladder. COMMENT: Consistent with the [employer] Incidental Findings Committee Report (J Am Patrick Radiol 2010): Unless the patients specific circumstances suggest otherwise, any liver lesion 0.5 cm or less, any cystic kidney lesion less than 1.0 cm, and/or any adrenal lesion 1.0 cm or less not otherwise characterized in this report as possessing suspicious or indeterminate imaging features is/are highly likely to be benign and do not require follow-up imaging or biopsy. Electronically signed by: María Pimentel On 07/09/2018 07:29:48 AM
[2018-07-09 08:00] VITALS: BP_DIAS 54
[2018-07-09] MEDS ORDERED: ONDA4TAB6 PO (09:11)
[2018-07-09] MEDS ORDERED: NORCOTAB PO (09:11)
[2018-07-09 09:27] VITALS: BP_SYST 114
--- NOTE | 2018-07-09 14:01 | ED PDOC ---
Post-Departure Follow-Up dr acevedo and dr iwona shell faxed formal report of ct abd/p for fu Francis Rockwell MD Jul 09, 2018 14:01
== END 2018-07-09 09:36 | disposition home or self-care (01) ==
LOC: M ED 02:22
DX: N13.30 Unspecified hydronephrosis (principal); N13.4 Hydroureter; C48.2 Malignant neoplasm of peritoneum, unspecified; Z79.899 Other long term (current) drug therapy; Z88.8 Allergy status to other drugs, medicaments and biological substances; Z87.891 Personal history of nicotine dependence
CPT/HCPCS: 71045; 74177; 80048; 80076; 83605; 83690; 85025; 87040; 96374; 96375; 99284; J2270; J2405; Q9967

== ENCOUNTER 2018-07-23 19:38 | Emergency (ER) | payer OTHER ==
[~2018-07-23] VITALS: Ht 160 cm; Wt 54.1 kg
[~2018-07-23 19:38] MED LIST changes: -CITA20TA4 PO; +CITA20TA6 PO; +HYDR-3715 PO; -NORCOTAB PO; +ONDA4TAB6 PO
[2018-07-23] MEDS ORDERED: ONDANSETRON 4MG/2ML VIAL (J2405) IV ONE (20:00)
[2018-07-23] MEDS ORDERED: KETOROLAC 30 MG/ML VIAL (J1885) IV ONE (20:00)
[2018-07-23] MEDS ORDERED: PANTOPRAZOLE 40MG INJ (PROTONIX) (C9113) IV ONE (20:00)
[2018-07-23] MEDS ORDERED: NS 1,000 ML IV ONE (20:00)
--- NOTE | 2018-07-23 20:20 | REP ---
Clinical: Abdominal pain. Technique: PA and lateral. Comparison: 07/09/2018. Findings: Mediastinum and cardiac silhouette are stable. [id number] with tip in the SVC. No focal consolidation, effusion, or pneumothorax. Skeletal structures intact. Impression: No focal consolidation or acute cardiopulmonary process appreciated. Electronically Signed by Paul Dillard MD 07/23/2018 08:11 P
[2018-07-23 20:22] LABS: HEMATOCRIT 35.7 % (42.0-52.0); HEMOGLOBIN 12.3 g/dl (13.5-17.5); MEAN CORPUSCULAR HEMOGLOBIN 31.9 pg (27.0-33.0); MEAN CORPUSCULAR HGB CONC 34.5 g/dl (32.0-36.5); MEAN CORPUSCULAR VOLUME 92.5 fl (80.0-96.0); PLATELET COUNT, AUTOMATED 312 10^3/uL (150-450); RED BLOOD COUNT 3.86 10^6/uL (4.30-6.10)
[2018-07-23 20:36] LABS: WHITE BLOOD COUNT 91.8 10^3/uL (4.0-10.0)
[2018-07-23 20:49] LABS: LYMPHOCYTES 2 % (16-52); NEUTROPHILS 94 % (35-75)
[2018-07-23 20:50] LABS: TOXIC VACUOLATION 1+
[2018-07-23 20:51] LABS: ALT/SGPT 13 U/L (12-78); BILIRUBIN,DIRECT 0.1 MG/DL (0.0-0.2); BILIRUBIN,TOTAL 0.5 MG/DL (0.2-1.0); BLOOD UREA NITROGEN 14 MG/DL (7-18); CALCIUM LEVEL 8.5 MG/DL (8.8-10.2); CARBON DIOXIDE LEVEL 24 MEQ/L (21-32); CHLORIDE LEVEL 104 MEQ/L (98-107); CREATININE FOR GFR 0.85 MG/DL (0.70-1.30); GLOMERULAR FILTRATION RATE > 60.0 (>49); GLUCOSE, FASTING 84 MG/DL (70-100); LIPASE 73 U/L (73-393); POTASSIUM SERUM 3.8 MEQ/L (3.5-5.1); SODIUM LEVEL 139 MEQ/L (136-145); TOTAL PROTEIN 6.2 GM/DL (6.4-8.2)
[2018-07-23 20:53] LABS: INFLUENZA A AMPLIFICATION NEGATIVE (NEGATIVE); INFLUENZA B AMPLIFICATION NEGATIVE (NEGATIVE)
[2018-07-23 20:54] LABS: PLATELET ESTIMATE NORMAL (NORMAL); SMUDGE CELLS 1+
[2018-07-23 21:30] VITALS: BP 101/62
[2018-07-23] MEDS ORDERED: ZOFR4TAB16 PO (21:50)
[2018-08-01] MEDS ORDERED: OMEP20CA3 PO (08:29)
[2018-08-01] MEDS ORDERED: CITA40TA4 PO (14:45)
== END 2018-07-23 22:11 | disposition home or self-care (01) ==
LOC: M ED 19:38
DX: K29.70 Gastritis, unspecified, without bleeding (principal); B34.9 Viral infection, unspecified; C16.9 Malignant neoplasm of stomach, unspecified; I10 Essential (primary) hypertension; Z87.891 Personal history of nicotine dependence; Z79.899 Other long term (current) drug therapy
CPT/HCPCS: 71046; 80048; 80076; 83690; 85025; 87502; 96374; 96375; 99284; C9113; J1885; J2405

== ENCOUNTER 2018-08-23 04:39 | Inpatient (IN) | payer OTHER ==
[~2018-08-23] VITALS: Ht 160 cm; Wt 58.0 kg
[2018-08-23] MEDS: LR 1,000 ML IV SCH ×2 (01:40→18:24)
[~2018-08-23 04:39] MED LIST changes: +CITA40TA4 PO; +FENT12DI12 TOP; +NARC1SPR NARES; +OMEP20CA3 PO; +ZOFR4TAB16 PO
[2018-08-23] MEDS ORDERED: FENT12DI8 TOP (04:50)
[2018-08-23] MEDS ORDERED: ONDANSETRON 4MG/2ML VIAL (J2405) IV ONE ×2 (05:00)
[2018-08-23] MEDS ORDERED: NS 1,000 ML IV ONE (05:00)
[2018-08-23] MEDS ORDERED: MORPHINE 4 MG/ML 1ML VIAL/SYRINGE (J2270) IV ONE (05:00)
[2018-08-23] MEDS: MORPHINE 4 MG/ML 1ML VIAL/SYRINGE (J2270) IV PRN ×2 (05:11→05:45)
[2018-08-23 05:19] LABS: BASO # 0.1 10^3/uL (0.0-0.2); BASO % 0.6 % (0.0-1.0); EOS # 0.1 10^3/uL (0.0-0.50); HEMATOCRIT 45.5 % (42.0-52.0); HEMOGLOBIN 14.9 g/dl (13.5-17.5); LYMPH # 1.6 10^3/uL (1.5-4.5); LYMPH % 18.9 % (24.0-44.0); MEAN CORPUSCULAR HEMOGLOBIN 30.7 pg (27.0-33.0); MEAN CORPUSCULAR HGB CONC 32.7 g/dl (32.0-36.5); MEAN CORPUSCULAR VOLUME 93.8 fl (80.0-96.0); MONO # 0.8 10^3/uL (0.0-0.8); MONO % 9.3 % (0.0-5.0); NEUTROPHILS # 5.8 10^3/uL (1.8-7.7); NEUTROPHILS % 69.8 % (36.0-66.0); PLATELET COUNT, AUTOMATED 433 10^3/uL (150-450); RED BLOOD COUNT 4.85 10^6/uL (4.30-6.10); WHITE BLOOD COUNT 8.3 10^3/uL (4.0-10.0)
[2018-08-23 05:40] LABS: INR 0.98; PROTHROMBIN TIME 13.1 SECONDS (12.1-14.4)
[2018-08-23 05:41] LABS: PARTIAL THROMBOPLASTIN TIME 36.7 SECONDS (25.4-37.6)
[2018-08-23 05:44] LABS: ALBUMIN 3.2 GM/DL (3.2-5.2); ALT/SGPT 12 U/L (12-78); BILIRUBIN,DIRECT 0.1 MG/DL (0.0-0.2); BILIRUBIN,TOTAL 0.4 MG/DL (0.2-1.0); BLOOD UREA NITROGEN 9 MG/DL (7-18); CALCIUM LEVEL 8.9 MG/DL (8.8-10.2); CARBON DIOXIDE LEVEL 28 MEQ/L (21-32); CHLORIDE LEVEL 102 MEQ/L (98-107); CK-MB VALUE MASS < 1.0 NG/ML (<3.6); CPK CREATINE PHOSPHOKINASE 69 U/L (39-308); CREATININE FOR GFR 0.92 MG/DL (0.70-1.30); GLOMERULAR FILTRATION RATE > 60.0 (>49); GLUCOSE, FASTING 89 MG/DL (70-100); LIPASE 78 U/L (73-393); MB/CK RELATIVE INDEX 1.45 (< OR =4); POTASSIUM SERUM 4.5 MEQ/L (3.5-5.1); SODIUM LEVEL 137 MEQ/L (136-145); TOTAL PROTEIN 6.7 GM/DL (6.4-8.2); TROPONIN I < 0.02 NG/ML (< 0.10)
[2018-08-23] MEDS ORDERED: methylPREDNISolone INJ 125 MG/2 ML VIAL (J2930) IV ONE (06:00)
[2018-08-23] MEDS ORDERED: diphenhydrAMINE INJ 50MG/ML VIAL (J1200) IV ONE (06:00)
[2018-08-23] MEDS ORDERED: ISOVUE-370 76% 100ML VIAL (Q9967) As Ordered ONE (06:14)
--- NOTE | 2018-08-23 08:13 | REPVR ---
EXAM: CT Abdomen and Pelvis With Contrast EXAM DATE/TIME: 08/23/2018 5:47 AM CLINICAL HISTORY: 62 years old, male; Abdominal pain; Localized; Lower; Additional info: Lower abd pain TECHNIQUE: Imaging protocol: Axial computed tomography images of the abdomen and pelvis with intravenous contrast. Coronal and sagittal reformatted images were created and reviewed. Radiation optimization: All CT scans at this facility use at least one of these dose optimization techniques: automated exposure control; mA and/or kV adjustment per patient size (includes targeted exams where dose is matched to clinical indication); or iterative reconstruction. Contrast material: ISO; Contrast volume: 100 ml; Contrast route: AC; COMPARISON: CT ABD/PEL W/IV ORAL CONTRAS 07/09/2018 6:07 AM FINDINGS: Lungs: The visualized portions of the lung bases are normal. ABDOMEN: Liver: There are no focal liver lesions present. Gallbladder and bile ducts: No gallstones or significant gallbladder wall thickening are seen. There is pericholecystic fluid but the fluid is not isolated to this location. There is mild biliary ductal dilation. The common bile duct measures 10 mm within the pancreatic head compared to 8 mm previously. Pancreas: The pancreas is normal with no ductal dilation. Spleen: The spleen demonstrates punctate calcifications, consistent with remote granulomatous organism exposure. Adrenals: The adrenal glands are normal. Kidneys and ureters: There is a 15 mm left kidney lower pole cyst. The right kidney appears unremarkable. There are no ureteral stones or hydronephrosis. Right sided hydronephrosis is no longer seen. Stomach and bowel: There is segmental thickening of multiple small bowel loops, grossly similar to the prior exam. The wall of the mid transverse colon appears thickened. There is long segment thickening of the wall of the sigmoid colon. Appendix: The appendix is not specifically identified. PELVIS: Bladder: The bladder wall appears thickened but may be accentuated by under distention. Reproductive: The prostate gland demonstrates mild nonspecific enlargement. The seminal vesicles are normal. ABDOMEN and PELVIS: Intraperitoneal space: There is a small amount of free intraperitoneal fluid present, increased compared to the prior exam. There is free air, mostly seen in the anterior aspect of the upper abdomen adjacent to the transverse colon and in the omentum. Omental thickening is again seen and are as on prior exam. Bones/joints: Degenerative endplate changes are seen at multiple levels in the visualized spine. Soft tissues: Poorly defined soft tissue in the mesentery in the right lower quadrant is again noted, grossly similar to the prior exam. Vasculature: The aorta demonstrates mild atherosclerotic calcification. Lymph nodes: No lymphadenopathy is seen. IMPRESSION: 1. 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 This is grossly similar to the prior exam, but there is now free air, mostly in the anterior upper abdomen, probably due to bowel perforation but the site of perforation is not clearly identified. Perforation may be at the transverse colon. 2. Small amount of ascites now present. 3. Resolution of mild right hydronephrosis seen previously. THIS REPORT CONTAINS FINDINGS THAT MAY BE CRITICAL TO PATIENT CARE. The findings were verbally communicated via telephone conference with Dr. Lindsey at 8:06 AM EDT on 08/23/2018. The findings were acknowledged and understood. Electronically signed by: María Pimentel On 08/23/2018 08:13:19 AM
[2018-08-23] MEDS ORDERED: ONDA4TAB6 PO (08:40)
[2018-08-23] MEDS ORDERED: NS 1,000 ML IV SCH (08:42)
[2018-08-23] MEDS ORDERED: ERTAPENEM SODIUM 1 GM in NS MINI-BAG PLUS 50 ML IV ONE (08:45)
[2018-08-23] MEDS ORDERED: BUPIVACAINE HCL 0.25% 30 ML VIAL As Ordered ONE (12:16)
[2018-08-23] MEDS ORDERED: dexameTHASONE 4 MG/ML 1ML VIAL (J1100) As Ordered ONE (13:13)
[2018-08-23] MEDS ORDERED: ONDANSETRON 4MG/2ML VIAL (J2405) As Ordered ONE (13:13)
[2018-08-23] MEDS ORDERED: PROPOFOL 200 MG/20 ML VIAL As Ordered ONE (13:13)
[2018-08-23] MEDS ORDERED: SUGAMMADEX SODIUM 500 MG/5 ML VIAL (BRIDION) As Ordered ONE (13:13)
[2018-08-23] MEDS ORDERED: LIDOCAINE 2% INJ 100 MG/5 ML SDV (FOR ANES.) As Ordered ONE (13:13)
[2018-08-23] MEDS ORDERED: ROCURONIUM BROMIDE 50 MG/5 ML VIAL As Ordered ONE ×2 (13:13→13:52)
[2018-08-23] MEDS ORDERED: fentaNYL 250 MCG/5 ML INJECTION (J3010) As Ordered ONE (13:13)
[2018-08-23] MEDS ORDERED: MIDAZOLAM INJ 2 MG/2 ML VIAL (J2250) As Ordered ONE (13:13)
[2018-08-23] MEDS ORDERED: HYDROmorphone HCL 2 MG/ML 1ML VIAL (J1170) As Ordered ONE (14:10)
[2018-08-23] MEDS ORDERED: BUPIVACAINE LIPOSOME/PF 1.3% 20ML VIAL (13.3MG/ML)(EXPAREL)(C9290 PER1MG) As Ordered ONE (14:57)
[2018-08-23] MEDS ORDERED: ePHEDrine SULFATE 25 MG/5 ML(5MG/ML) SYRINGE As Ordered ONE (15:16)
[2018-08-23] MEDS ORDERED: MORPHINE 4 MG/ML 1ML VIAL/SYRINGE (J2270) IV PRN (16:00)
[2018-08-23] MEDS ORDERED: LR 1,000 ML IV SCH (16:00)
[2018-08-23] MEDS ORDERED: ONDANSETRON 4MG/2ML VIAL (J2405) IV PRN ×2 (16:00)
[2018-08-23] MEDS ORDERED: NORCO, ANEXSIA 5/325MG TABLET (HYDROcodone/ACETAMINOPHEN) PO PRN (16:00)
[2018-08-23] MEDS ORDERED: HYDROMORPHONE HCL 0.5 MG/ 0.5 ML SYRINGE (J1170 PER 1) IV PRN (16:00)
[2018-08-23] MEDS ORDERED: fentaNYL 100 MCG/2 ML INJECTION (J3010) IV PRN (16:00)
[2018-08-23] MEDS ORDERED: METOCLOPRAMIDE INJ 10MG/2ML VIAL (J2765) IV PRN (16:00)
[2018-08-23 17:10] VITALS: BP 106/64
[2018-08-23 17:40] VITALS: BP 111/58
[2018-08-23 18:40] VITALS: BP 103/62
[2018-08-23 22:00] VITALS: BP 168/95
[2018-08-23] MEDS: ENOXAPARIN 40 MG/0.4 ML SYRINGE (J1650) SC SCH (22:18)
[2018-08-24 02:00] VITALS: BP 115/62
[2018-08-24 06:00] VITALS: BP 110/53
[2018-08-24 06:45] LABS: BASO % 0.1 % (0.0-1.0); HEMATOCRIT 34.3 % (42.0-52.0); HEMOGLOBIN 11.2 g/dl (13.5-17.5); LYMPH # 0.4 10^3/uL (1.5-4.5); LYMPH % 1.9 % (24.0-44.0); MEAN CORPUSCULAR HEMOGLOBIN 30.6 pg (27.0-33.0); MEAN CORPUSCULAR HGB CONC 32.7 g/dl (32.0-36.5); MEAN CORPUSCULAR VOLUME 93.7 fl (80.0-96.0); MONO # 0.6 10^3/uL (0.0-0.8); MONO % 2.7 % (0.0-5.0); NEUTROPHILS # 19.4 10^3/uL (1.8-7.7); NEUTROPHILS % 93.3 % (36.0-66.0); PLATELET COUNT, AUTOMATED 288 10^3/uL (150-450); RED BLOOD COUNT 3.66 10^6/uL (4.30-6.10); WHITE BLOOD COUNT 20.8 10^3/uL (4.0-10.0)
[2018-08-24 07:16] LABS: BLOOD UREA NITROGEN 11 MG/DL (7-18); CALCIUM LEVEL 8.6 MG/DL (8.8-10.2); CARBON DIOXIDE LEVEL 28 MEQ/L (21-32); CHLORIDE LEVEL 105 MEQ/L (98-107); CREATININE FOR GFR 0.61 MG/DL (0.70-1.30); GLOMERULAR FILTRATION RATE > 60.0 (>49); GLUCOSE, FASTING 98 MG/DL (70-100); POTASSIUM SERUM 4.5 MEQ/L (3.5-5.1); SODIUM LEVEL 138 MEQ/L (136-145)
[2018-08-24] MEDS: LR 1,000 ML IV SCH ×2 (09:45→22:22)
[2018-08-24] MEDS: PANTOPRAZOLE 40MG INJ (PROTONIX) (C9113) IV SCH (09:56)
[2018-08-24] MEDS: ERTAPENEM SODIUM 1 GM in NS MINI-BAG PLUS 50 ML IV SCH (09:57)
[2018-08-24 10:00] VITALS: BP 119/66
[2018-08-24 14:00] VITALS: BP 114/66
--- NOTE | 2018-08-24 15:45 | HPE ---
DATE OF ADMISSION: 08/23/2018 ADMISSION DIAGNOSIS: Perforated small bowel with widespread abdominal carcinomatosis. HISTORY OF PRESENT ILLNESS: The patient is a very pleasant 62-year-old man who approximately six months ago had developed some left lower quadrant abdominal pain. He underwent evaluation which included a CT scan of the abdomen and pelvis in late March 2018. This revealed some nodularity of the omentum suggestive of carcinomatosis. He underwent a colonoscopy and esophagogastroduodenoscopy (EGD) on 04/26/2018. The colonoscopy was normal and the EGD was also normal. On 05/25/2018, he underwent a laparoscopy. He was found to have multiple nodules and small plaques of abnormal tissue on the abdominal wall, on the omentum and also involving the mesentery of the small and large bowel. Samples were taken and the pathology was felt to be consistent with adenocarcinoma from a colorectal or appendicular source. The patient had an [id number]-Btfw placed and saw medical oncology and has been receiving chemotherapy. His most recent treatment was yesterday, 08/22/2018. At about 04:00 or 04:30 in the morning of 08/23/2018, the patient was awakened from sleep by severe epigastric abdominal pain. This became constant and he presented to the emergency department for evaluation at 04:30 in the morning. He received morphine and antiemetics. He has a fentanyl patch in place and this was left in place. He had some laboratories obtained that showed normal white count and normal blood chemistries. A CT scan of the abdomen and pelvis was obtained at approximately 06:00 o'clock in the morning. This revealed some small bubbles of free air in the upper abdomen with some free fluid and changes of bowel thickening and some nodularity consistent with his known carcinomatosis. I was consulted and the patient has subsequently undergone laparoscopy and laparotomy and is now admitted for management. At surgery, he was found to have a roughly 1 mm perforation through an area of thickened small bowel in the upper midabdomen, clearly markedly involved by tumor with possibly obstruction in this loop as well. ALLERGIES: Reported to IODINE which apparently causes hives. CURRENT MEDICATIONS: At home include: - citalopram 40 mg by mouth daily - fentanyl 12 mcg patches to the skin every 72 hours as needed for pain - omeprazole 20 mg by mouth daily - Zofran 4 mg orally dissolving tablets every six hours as needed for nausea PAST MEDICAL HISTORY: Significant for a history of smoking in the past. He has his known carcinomatosis, currently undergoing chemotherapy. He has no known cardiac, respiratory or endocrine problems. PAST SURGICAL HISTORY: He has undergone surgery for a right ankle injury. He has had left and right rotator cuff repairs and underwent an esophagogastroduodenoscopy (EGD) and colonoscopy back in March 2018. He had laparoscopy with biopsy of an omental mass in May 2018 and had an Ujzfib-N-Ucyu placed in June 2018. FAMILY HISTORY: Not helpful. REVIEW OF SYSTEMS: He has had no chest pain or palpitations. He has had no recent upper respiratory symptoms. He has been having some fairly persistent abdominal pain. He denies any dysuria or hematuria. He does report he has been eating and having bowel function. He has no new bone or joint problems. PHYSICAL EXAMINATION: Reveals a very pleasant man, lying quietly on the hospital stretcher. He appears older than his stated age of 62 years. He is quite thin but I would not use the word emaciated. His most recent vital signs show that he has been afebrile. His pulse is in the 65-75 range. His blood pressure is good. His respiratory rate is 18. Room air oxygen saturation is normal. He is alert and oriented. Skin is warm and dry. Heart examination shows a regular rate and rhythm. The lungs are clear to auscultation. The abdomen is flat to scaphoid. The abdomen is quiet to auscultation. The abdomen is not distended. There is no tympany to percussion. He has some mild tenderness to palpation in the epigastrium, possibly with some guarding in the upper quadrants though the lower quadrants are softer and nontender. Extremities are without peripheral edema. LABORATORY STUDIES: In the emergency department showed a white count of 8, hemoglobin of 15, hematocrit of 46, and a platelet count of 433. His differential showed 70% neutrophils, 19% lymphocytes and 9% monocytes. Chemistry profile showed normal electrolytes with a BUN of 9, creatinine 0.9 and a glucose of 89. His liver profile was normal other than an alkaline phosphatase slightly elevated at 121. Troponin was less than 0.02. Total protein is 6.7 with an albumin of 3.2 and a lipase was normal at 78. His coagulations were normal and a urinalysis was not suggestive of a urinary tract infection. His CT scan imaging I reviewed personally. There are a few small air bubbles primarily in the upper midabdomen and in the left upper quadrant. He does have some free fluid around the liver in particular, but also some around the spleen. There are some mildly dilated loops of small bowel with some areas of bowel thickening. IMPRESSION: Perforated viscus in a patient with known carcinomatosis of the abdomen, undergoing chemotherapy. PLAN: The patient was counseled for surgery. It is unclear at the time of his admission where the perforation might be located. The possibilities included a perforated ulcer versus perforation of the colon versus small bowel perforation. He did wish to undergo surgery and so was taken to the operating room and found to have a nearly pinpoint perforation of a markedly abnormal segment of small bowel in the upper midabdomen. This segment of bowel, perhaps 20 cm long had marked involvement of the mesentery by tumor with a suggestion of some angulation and even obstruction in this area. He underwent a laparoscopy with laparotomy and resection of approximately 30 cm of the small bowel with a primary anastomosis. He is now admitted for postoperative care. He remains on Invanz daily. He has a nasogastric tube in place and a Cooper catheter to monitor his urine output initially. He has analgesics ordered and is on a proton pump inhibitor to decrease his gastric secretions. The patient has tolerated his treatment to date and hopefully will do well and be able to go home.
[2018-08-24] MEDS: MORPHINE 4 MG/ML 1ML VIAL/SYRINGE (J2270) IV PRN ×2 (16:43→22:22)
[2018-08-24 18:00] VITALS: BP 120/69
[2018-08-24] MEDS: KETOROLAC 30 MG/ML VIAL (J1885) IV PRN (18:26)
[2018-08-24 22:00] VITALS: BP 109/59
--- NOTE | 2018-08-24 22:09 | RO ---
DATE OF PROCEDURE: 08/23/2018 PREOPERATIVE DIAGNOSIS: Perforated viscus with known carcinomatosis of the abdomen. POSTOPERATIVE DIAGNOSIS: Perforated small bowel with diffuse peritonitis and carcinomatosis. PROCEDURE PERFORMED: Laparoscopy with laparotomy, segmental small bowel resection with anastomosis. SURGEON: Dr. 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 He has been undergoing chemotherapy. His most recent dose was on the . Early this morning he was awakened by severe pain in the upper abdomen and came to the emergency department. A CT scan showed a small amount of free air and some free fluid in the abdomen. He is now for laparoscopy and possible laparotomy. DESCRIPTION OF PROCEDURE: The patient was brought to the operating room and placed on the table in a supine position. He was placed under general endotracheal anesthesia. A Cooper catheter was inserted. Thromboembolism deterrents (TEDS) and sequentials were placed. Anesthesia inserted a nasogastric tube. The patient's abdomen was prepped and draped in a sterile fashion. Initial entry into the abdomen was in the right upper quadrant. Local anesthesia was infiltrated and a short transverse incision was made. A Veress needle was inserted and after a positive hanging drop test, the abdomen was inflated with carbon dioxide. A 5 mm scope was placed through a 5 mm trocar and advanced through the abdominal wall carefully without difficulty. Initial examination showed multiple small plaques of tumor scattered on the anterior abdominal wall. The liver appeared fairly normal with no evident metastases. There was some free fluid noted in the right and left paracolic gutters, which appeared somewhat bilious in color. There were some irregular somewhat nodular loops of small bowel identified. A second 5 mm trocar was placed in the left side of the abdomen at about the same level as the trocar on the right. A suction data security administrator was used to remove some fluid which was caught in a specimen trap and sent for culture and sensitivity. Some additional fluid was then suctioned and irrigated. A grasper was then inserted, and the greater omentum was elevated up above the transverse colon. My initial thinking had been that the perforation might be from the transverse colon as there had been nodules of tumor noted in this area on the scan. However, there did not appear to be any perforation in this area. The left lobe of the liver was elevated to look for possible perforated gastric or duodenal ulcer and this also was not identified. Some exudate was noted on a loop of quite distorted small bowel in the mid epigastrium. The small bowel was then manipulated with the grasper and in inspecting this area, an essentially pinpoint perforation was identified on the inferior surface of a very abnormal segment of the small bowel. This was clearly leaking a small amount of bilious fluid. I elected to proceed to a laparotomy so a midline incision was begun in the mid epigastrium and carried down around the right side of the umbilicus. This was approximately 10 cm in length. The abnormal loop of small bowel was more carefully inspected. This appeared to be an approximately 20-30 cm length of bowel that was matted together by nodular cancer in the mesentery binding the loops together. There also appeared to be some tumor involvement of the wall of the bowel. A portion of this segment was quite narrowed and another area was somewhat distended, and I suspected that there was a local obstruction. The bowel proximal and distal to this appeared more normal in caliber and the wall was supple, though there were multiple implants of tumor in the mesentery throughout the small bowel that was inspected. I elected to proceed with a resection of this segment. A proximal and distal point for resection were identified and the bowel was divided with a linear cutter 55 stapler with a blue load at each point. The mesentery was then divided close to the bowel wall using the Harmonic scalpel. In one area, some persistent oozing was noted and this was oversewn with a [id number]-[id number] suture of #2-0 chromic. Dissection proceeded to transect the mesentery of the entire segment. I elected to barbie the site of the perforation by placing a silk suture on each side of this to indicate the location of the perforation. This was then sent for permanent pathology. The cut edge of the mesentery was noted and in two areas where there were obvious vessels pulsing, I oversewed both areas with chromic sutures. The blood supply to one end of the bowel appeared to be slightly undermined and so an additional 1-2 inches of small bowel was resected with another firing of the stapler. At the other end of the bowel, there was a tumor nodule buckling the small bowel at the area where the anastomosis would be performed, so I again resected an additional 1-2 inches of bowel with another load of the stapler and divided the mesentery with the Harmonic. A stapled anastomosis was then performed using a linear cutter 55 and a TX60B stapler to complete the anastomosis. The mesenteric defect was closed with several simple sutures of #3-0 Vicryl. Several additional reinforcing sutures of #3-0 Vicryl were placed at the anastomosis. This appeared to be healthy with good blood supply and no evidence of leakage. The area was irrigated and reduced into the abdomen. The abdomen was then thoroughly irrigated with approximately 3-4 liters of warm saline. Final inspection revealed no significant residual bilious fluid or blood. The abdominal fascia was then closed with interrupted simple sutures of #1 of Vicryl. 20 mL of Exparel was mixed with 20 mL of 0.25% Marcaine, and this was infiltrated along the midline incision and along the sites of the two trocar insertions. I had checked the positioning of the nasogastric (NG) tube in this was nicely positioned in the midbody of the stomach. The skin incisions were closed with subcuticular #4-0 Vicryl and Steri-Strips. Light dressings were applied. The patient tolerated the procedure surprisingly well. He was awakened in the operating room, extubated and moved to the recovery room in stable condition.
[2018-08-24] MEDS: ENOXAPARIN 40 MG/0.4 ML SYRINGE (J1650) SC SCH (22:22)
[2018-08-25] MEDS: KETOROLAC 30 MG/ML VIAL (J1885) IV PRN ×3 (01:26→19:00)
[2018-08-25 02:00] VITALS: BP 115/63
[2018-08-25 06:00] VITALS: BP 120/64
--- NOTE | 2018-08-25 08:01 | IPN ---
DATE: 08/24/2018 HISTORY: Patient is now postop day #1 from a laparoscopy and laparotomy with a small bowel resection for a small bowel perforation with peritonitis. He has done generally well overnight since his surgery. His vital signs show that he has been afebrile since yesterday. His pulse is now in the 60s and his blood pressure is acceptable. Room air oxygen saturation is in the mid to upper 90s. Intake and output shows that yesterday he had 2800 in with 760 out. He has had a brisk urine output today. PHYSICAL EXAM: Patient is sitting up in bed, looking fairly comfortable. He did have one dose of morphine today but that is his only pain medicine today. His nasogastric (NG) tube has had very little out. Patient is alert and oriented. He denies any particular pain right now. Heart exam shows a regular rhythm. The lungs show good bilateral breath sounds. The abdomen is flat and soft, and he does have some bowel sounds present. He reports he has been passing some flatus. Laboratory studies today showed a white count of 21,000, hemoglobin of 11, hematocrit of 34 and a platelet count of 288,000. Differential count showed 93% neutrophils and 2% lymphocytes and 3% monocytes. Chemistry profile showed a sodium of 138, potassium 4.5, chloride 105, CO2 of 28, BUN of 11, creatinine 0.6 and a glucose of 98. IMPRESSION: Patient is doing very well 1 day postop from his laparotomy and bowel resection for a perforation in the face of carcinomatosis. He has been quite comfortable. His NG tube has little out and he has bowel sounds and is passing flatus. He has a brisk urine output. PLAN: I will remove the patient's NG tube and Cooper catheter today. I will let him try some sips of clear liquids in limited quantities today, which we may be able to advance tomorrow if he tolerates these well. I will reinstate his DO NOT RESUSCITATE order. He has two saline locks and one IV in place, and I have asked the nurses to remove two of these. I will cut back his IV rate for now.
[2018-08-25] MEDS: ERTAPENEM SODIUM 1 GM in NS MINI-BAG PLUS 50 ML IV SCH (09:03)
[2018-08-25] MEDS: LR 1,000 ML IV SCH (09:03)
[2018-08-25] MEDS: PANTOPRAZOLE 40MG INJ (PROTONIX) (C9113) IV SCH (09:03)
[2018-08-25] MEDS ORDERED: NORCO, ANEXSIA 5/325MG TABLET (HYDROcodone/ACETAMINOPHEN) PO PRN (09:30)
[2018-08-25 10:00] VITALS: BP 125/60
[2018-08-25 14:00] VITALS: BP 120/62
[2018-08-25] MEDS: CitaloPRAM (CeleXA) 20 MG TAB PO SCH (14:29)
[2018-08-25] MEDS ORDERED: fentaNYL 12 MCG/HR PATCH TOP SCH (15:00)
[2018-08-25] MEDS ORDERED: FENTANYL REMOVAL DOCUMENTATION MISC XX SCH (15:00)
[2018-08-25 18:00] VITALS: BP 123/63
--- NOTE | 2018-08-25 21:42 | IPNPDOC ---
Text Note Date of Service The patient was seen on 08/25/18. NOTE No acute events overnight. He is tolerating diet. Denies nausea, emesis, fevers, pains, or BMs. He is passing flatus, and ambulating without any problems. VSSAF NAD abd - soft, nt, nd, incisions c/d/i A) 62y/o male s/p exlap with SBR for perforation. P) reg diet ambulate ok to shower PO pain control with fentanyl patch plan on dc after a BM. Kirt Mckeon DO A-FIB/CHADSVASC A-FIB History Current/History of A-Fib/PAF?: No VS,Fishbone, I+O VS, Fishbone, I+O Vital Signs Date Time Temp Pulse Resp B/P (MAP) Pulse Ox O2 Delivery O2 Flow Rate FiO2 08/25/18 18:00 98.6 84 18 123/63 (83) 94 08/23/18 15:56 2 08/23/18 10:30 Room Air I&O- Last 24 Hours up to 6 AM 08/25/18 06:00 Intake Total 2903 ml Output Total 2650 ml Balance 253 ml VADIM MCKEON DO Aug 25, 2018 21:42
[2018-08-25 22:00] VITALS: BP 101/58
[2018-08-25] MEDS: ENOXAPARIN 40 MG/0.4 ML SYRINGE (J1650) SC SCH (22:32)
[2018-08-26 02:00] VITALS: BP 109/60
[2018-08-26 06:00] VITALS: BP 128/76
[2018-08-26 08:06] LABS: HEMOGLOBIN 11.1 g/dl (13.5-17.5); MEAN CORPUSCULAR HEMOGLOBIN 30.7 pg (27.0-33.0); MEAN CORPUSCULAR HGB CONC 32.6 g/dl (32.0-36.5); MEAN CORPUSCULAR VOLUME 94.2 fl (80.0-96.0); PLATELET COUNT, AUTOMATED 296 10^3/uL (150-450); RED BLOOD COUNT 3.61 10^6/uL (4.30-6.10); WHITE BLOOD COUNT 9.5 10^3/uL (4.0-10.0)
--- NOTE | 2018-08-26 08:25 | IPNPDOC ---
Text Note Date of Service The patient was seen on 08/26/18. NOTE No acute events overnight. He is tolerating diet. Denies nausea, emesis, fevers, pains, or BMs. He is passing flatus, and ambulating without any problems. VSSAF NAD abd - soft, nt, nd, incisions c/d/i Labs - wbc back to normal see below A) 62y/o male s/p exlap with SBR for perforation. P) reg diet ambulate ok to shower PO pain control with fentanyl patch plan on dc after a BM. Kirt Mckeon DO A-FIB/CHADSVASC A-FIB History Current/History of A-Fib/PAF?: No VS,Fishbone, I+O VS, Fishbone, I+O Laboratory Tests 08/26/18 07:49 Red Blood Count 3.61 L, Mean Corpuscular Volume 94.2, Mean Corpuscular Hemoglobin 30.7, Mean Corpuscular Hemoglobin Concent 32.6, Red Cell Distribution Width 15.0 H Vital Signs Date Time Temp Pulse Resp B/P (MAP) Pulse Ox O2 Delivery O2 Flow Rate FiO2 08/26/18 06:00 97.1 51 18 128/76 (93) 97 08/23/18 15:56 2 08/23/18 10:30 Room Air I&O- Last 24 Hours up to 6 AM 08/26/18 06:00 Intake Total 2150 ml Output Total 1400 ml Balance 750 ml VADIM MCKEON DO Aug 26, 2018 08:25
[2018-08-26] MEDS: OMEPRAZOLE 20 MG CAP PO SCH (09:46)
[2018-08-26] MEDS: CitaloPRAM (CeleXA) 20 MG TAB PO SCH (09:46)
[2018-08-26 14:00] VITALS: BP 123/76
[2018-08-26] MEDS: KETOROLAC 30 MG/ML VIAL (J1885) IV PRN ×2 (15:00→21:23)
[2018-08-26] MEDS: ENOXAPARIN 40 MG/0.4 ML SYRINGE (J1650) SC SCH (21:24)
[2018-08-26 22:00] VITALS: BP 112/65
[2018-08-27 06:00] VITALS: BP 123/67
[2018-08-27] MEDS: OMEPRAZOLE 20 MG CAP PO SCH (08:35)
[2018-08-27] MEDS: CitaloPRAM (CeleXA) 20 MG TAB PO SCH (08:35)
--- NOTE | 2018-08-28 14:15 | IPN ---
DATE: 08/27/2018 HISTORY: The patient is now 4 days postoperative from laparoscopy and laparotomy with a segmental small-bowel resection for a small-bowel perforation. He has been doing well over the weekend. His antibiotics were stopped. He is taking a regular diet. He reports he is voiding well. Denies any nausea or vomiting and is passing flatus. Vital signs show that he has been afebrile over the past 24 hours. His pulse is in the 50s to 70s, and his blood pressure is good. Intake and output shows that yesterday he had 1100 in with 1150 out. PHYSICAL EXAMINATION: Patient is alert and oriented. He appears quite comfortable. He does have a fentanyl patch in place today. Heart exam shows a regular rhythm. The lungs are clear. The abdomen is scaphoid to flat. His incisions were all healing well. He has bowel sounds present. Pathology revealed metastatic mucinous adenocarcinoma. Acute inflammation was noted, consistent with peritonitis. IMPRESSION: The patient is doing well, now 4 days postoperative from his bowel resection for perforation from cancer and chemotherapy. PLAN: The patient will be discharged home today. He will continue with the fentanyl patches, which he has at home. He can take a diet as tolerated. He should avoid any strenuous physical activity. He reports that Dr. Shaw stopped in to see him, and he will have followup with medical oncology. He should followup with me in 10-14 days or sooner for problems.
== END 2018-08-27 10:30 | disposition home or self-care (01) | DRG 221 ==
LOC: EDBD 04:39 → M ED 04:39 → M ED INP 10:50 → M MS5PR 16:45
PROVIDERS: ADMIT Surgery; ATTEND Surgery
PROC: 0DB80ZZ Excision of Small Intestine, Open Approach (ICD-10-PCS; principal; 2018-08-23 10:23)
DX: K63.1 Perforation of intestine (nontraumatic) (principal); C78.6 Secondary malignant neoplasm of retroperitoneum and peritoneum; C18.1 Malignant neoplasm of appendix; Z87.891 Personal history of nicotine dependence; Z79.899 Other long term (current) drug therapy

== ENCOUNTER 2018-09-11 18:22 | Inpatient (IN) | payer OTHER ==
[~2018-09-11] VITALS: Ht 160 cm; Wt 47.7 kg
[~2018-09-11 18:22] MED LIST changes: +FENT12DI8 TOP
[2018-09-11] MEDS ORDERED: OMEP-218 (18:36)
[2018-09-11] MEDS ORDERED: NS 1,000 ML IV SCH (19:12)
[2018-09-11] MEDS ORDERED: MORPHINE 4 MG/ML 1ML VIAL/SYRINGE (J2270) IV ONE ×3 (19:15→22:30)
[2018-09-11 19:28] LABS: BASO # 0.1 10^3/uL (0.0-0.2); BASO % 0.4 % (0.0-1.0); EOS # 0.2 10^3/uL (0.0-0.50); HEMOGLOBIN 12.4 g/dl (13.5-17.5); LYMPH % 6.5 % (24.0-44.0); MEAN CORPUSCULAR HEMOGLOBIN 30.6 pg (27.0-33.0); MEAN CORPUSCULAR HGB CONC 33.5 g/dl (32.0-36.5); MEAN CORPUSCULAR VOLUME 91.4 fl (80.0-96.0); MONO # 1.3 10^3/uL (0.0-0.8); MONO % 8.5 % (0.0-5.0); NEUTROPHILS # 12.7 10^3/uL (1.8-7.7); NEUTROPHILS % 82.9 % (36.0-66.0); PLATELET COUNT, AUTOMATED 499 10^3/uL (150-450); RED BLOOD COUNT 4.05 10^6/uL (4.30-6.10); WHITE BLOOD COUNT 15.2 10^3/uL (4.0-10.0)
[2018-09-11 19:31] LABS: ALBUMIN 2.7 GM/DL (3.2-5.2); ALT/SGPT 14 U/L (12-78); BILIRUBIN,DIRECT < 0.1 MG/DL (0.0-0.2); BILIRUBIN,TOTAL 0.2 MG/DL (0.2-1.0); LIPASE 83 U/L (73-393)
[2018-09-11 19:57] LABS: BLOOD UREA NITROGEN 9 MG/DL (7-18); CARBON DIOXIDE LEVEL 25 MEQ/L (21-32); CHLORIDE LEVEL 108 MEQ/L (98-107); CREATININE FOR GFR 0.75 MG/DL (0.70-1.30); GLOMERULAR FILTRATION RATE > 60.0 (>49); GLUCOSE, FASTING 99 MG/DL (70-100); POTASSIUM SERUM 3.6 MEQ/L (3.5-5.1); SODIUM LEVEL 140 MEQ/L (136-145)
[2018-09-11] MEDS: READI-CAT 2 PO SCH ×2 (20:23→21:14)
[2018-09-11] MEDS ORDERED: ISOVUE-370 76% 100ML VIAL (Q9967) As Ordered ONE (21:48)
--- NOTE | 2018-09-11 22:51 | REPVR ---
EXAM: CT Abdomen and Pelvis With Contrast EXAM DATE/TIME: 09/11/2018 10:22 PM CLINICAL HISTORY: 62 years old, male; Abdominal pain; Generalized; Prior surgery; Additional info: Llq pain TECHNIQUE: Imaging protocol: Axial computed tomography images of the abdomen and pelvis with intravenous contrast. Coronal and sagittal reformatted images were created and reviewed. Radiation optimization: All CT scans at this facility use at least one of these dose optimization techniques: automated exposure control; mA and/or kV adjustment per patient size (includes targeted exams where dose is matched to clinical indication); or iterative reconstruction. Contrast material: ISOVUE 370; Contrast volume: 100 ml; Contrast route: POWER PORT; COMPARISON: CT ABD/PEL W/IV CONTRAST ONLY 08/23/2018 6:14 AM FINDINGS: Lungs: No suspicious mass or airspace process in the visualized lung bases. ABDOMEN: Liver: Liver appears normal with no focal abnormality. Gallbladder and bile ducts: Gallbladder is present and shows no evidence of gallstone. Pancreas: Pancreas appears normal. No focal mass or peripancreatic inflammation. Spleen: Spleen appears homogeneous without focal mass. Adrenals: Adrenal glands are normal in appearance. Kidneys and ureters: Kidneys are unremarkable aside from a 17 mm lower pole simple fluid left renal cyst. Stomach and bowel: Stomach is markedly distended with ingested material, fluid and enteric contrast. Large and small bowel loops are dilated, with inspissated enteric contents, and there is increased bowel mucosal enhancement. There may be an annular sigmoid lesion partially obstructing and there is free fluid within the abdomen without organized collection. Pneumoperitoneum from the previous exam has resolved and anterior midline surgical incisions are present possible peritoneal carcinomatosis Appendix: Appendix is not visualized. PELVIS: Bladder: Bladder appears normal. Reproductive: Prostate gland is diffusely enlarged. ABDOMEN and PELVIS: Bones/joints: Degenerative changes are seen in the lumbar spine with disc height loss, endplate osteophytes and hypertrophic facet arthropathy. Vasculature: Main portal and splenic veins enhance normally. Lymph nodes: No enlarged lymph nodes. IMPRESSION: 1. Marked distention of the stomach for which nasogastric tube placement is suggested. Diffusely dilated large and small bowel with inspissated contents suggesting chronic level of obstruction. Possible annular sigmoid mass could be the source of obstruction and should be correlated with prior surgical and medical history. No evidence of recurrent perforation 2. Abdominal and pelvic free fluid without organized collection suggestive of abscess. 3. Concern for peritoneal carcinomatosis Electronically signed by: Brando Yousif On 09/11/2018 22:51:28 PM
[2018-09-11] MEDS ORDERED: OMEP-218 PO (23:31)
[2018-09-11] MEDS ORDERED: ONDANSETRON 4MG/2ML VIAL (J2405) IV PRN (23:45)
[2018-09-11] MEDS ORDERED: SCOPOLAMINE 1MG TRANSDERMAL PATCH TOP PRN (23:45)
[2018-09-11] MEDS ORDERED: LORazepam 2 MG/ML VIAL (J2060) IV PRN (23:45)
--- NOTE | 2018-09-11 23:49 | HPEPDOC ---
General Date of Admission Chief Complaint The patient is a 62-year-old male admitted with a reason for visit of N/V. Source: Patient, Family, RN/MD, Old records History of Present Illness Mr. 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 At that time, he underwent small bowel resection. Intra-op he was noted to have widespread alejo toneal carcinomatosis. Pt now presents to ER with c/o diffuse abdominal pain that started on Monday after eating spaghetti. He is passing gas; last bowel movement was this morning. CT: chronic small and large bowel obstruction. Findings and goal of care discussed with pt and his sister in the presence of ER nurse. Pt wishes to be on comfort care only, which I think is entirely appropriate and recommended due to lack of any meaningful medical/surgical treatment at this time, except for symptom management. 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 Family History Significant Family History: No pertinent family hx Social History * Smoker: Denies Alcohol: Denies Drugs: denies A-FIB/CHADSVASC A-FIB History Current/History of A-Fib/PAF?: No Review of Systems Constitutional: Reports: Weakness, Fatigue, Weight Loss; Denies: Chills, Fever Eyes: Denies: Pain ENT: Denies: Head Aches Skin: Denies: Rash, Lesions Pulmonary: Denies: Dyspnea, Cough Cardiovascular: Denies: Chest Pain Gastrointestinal: Reports: Abdominal Pain; Denies: Nausea, Vomiting Genitourinary: Denies: Dysuria Neurological: Reports: Weakness; Denies: Numbness, Change in speech Psych: Reports: Mood Normal; Denies: Anxiety Physical Examination General Exam: Positive: Alert, Cooperative, No Acute Distress Eye Exam: Positive: PERRLA ENT Exam: Positive: Atraumatic Neck Exam: Positive: Supple; Negative: JVD Chest Exam: Positive: Clear to auscultation, Normal air movement Heart Exam: Positive: Rate Normal, Regular Rhythm; Negative: Murmurs Abdomen Exam: Positive: Soft, Tenderness (diffuse), Other (rare loud bowel sounds) Extremity Exam: Positive: Normal pulses; Negative: Edema Skin Exam: Negative: Rash, Breakdown Neuro Exam: Positive: Normal Speech, Strength at 5/5 X4 ext, Normal Tone Psych Exam: Positive: Mental status NL, Mood NL Vital Signs Vital Signs Date Time Temp Pulse Resp B/P (MAP) Pulse Ox O2 Delivery O2 Flow Rate FiO2 09/11/18 22:58 97.8 94 16 135/79 100 09/11/18 18:33 Room Air Laboratory Data Labs 24H Laboratory Tests 2 09/11/18 18:43: Immature Granulocyte % (Auto) 0.7, White Blood Count 15.2H, Red Blood Count 4.05L, Hemoglobin 12.4L, Hematocrit 37.0L, Mean Corpuscular Volume 91.4, Mean Corpuscular Hemoglobin 30.6, Mean Corpuscular Hemoglobin Concent 33.5, Red Cell Distribution Width 15.0H, Platelet Count 499H, Neutrophils (%) (Auto) 82.9H, Lymphocytes (%) (Auto) 6.5L, Monocytes (%) (Auto) 8.5H, Eosinophils (%) (Auto) 1.0, Basophils (%) (Auto) 0.4, Neutrophils # (Auto) 12.7H, Lymphocytes # (Auto) 1.0L, Monocytes # (Auto) 1.3H, Eosinophils # (Auto) 0.2, Basophils # (Auto) 0.1, Nucleated Red Blood Cells % (auto) 0.0, Anion Gap 7L, Glomerular Filtration Rate > 60.0, Calcium Level 9.0, Aspartate Amino Transf (AST/SGOT) 13, Alanine Aminotransferase (ALT/SGPT) 14, Alkaline Phosphatase 97, Total Bilirubin 0.2, Direct Bilirubin < 0.1, Total Protein 7.0, Albumin 2.7L, Albumin/Globulin Ratio 0.63L, Lipase 83 CBC/BMP Laboratory Tests 09/11/18 18:43 Red Blood Count 4.05 L, Mean Corpuscular Volume 91.4, Mean Corpuscular Hemoglobin 30.6, Mean Corpuscular Hemoglobin Concent 33.5, Red Cell Distribution Width 15.0 H, Neutrophils (%) (Auto) 82.9 H, Lymphocytes (%) (Auto) 6.5 L, Monocytes (%) (Auto) 8.5 H, Eosinophils (%) (Auto) 1.0, Basophils (%) (Auto) 0.4, Neutrophils # (Auto) 12.7 H, Lymphocytes # (Auto) 1.0 L, Monocytes # (Auto) 1.3 H, Eosinophils # (Auto) 0.2, Basophils # (Auto) 0.1 Assessment/Plan Abdominal pain, Chronic Small and Large Bowel Obstruction due to Diffuse Peritoneal Carcinomatosis - Admit to inpatient for comfort care only - Increase dose of Fentanyl patch from 12 mcg to 25 mcg/72 hr; Morphine, Zofran, Ativan and Scopolamine prn. - NG decompression if needed for relief of symptom; pt is ok at the moment. - Hospice consult; Pt is looking forward to home hospice Plan / VTE VTE Prophylaxis Ordered?: No Plan Anticipated Discharge: Hospice (home hospice) Advanced Directives: Comfort Care Measures ORLY CARCAMO MD September 11, 2018 23:49
[2018-09-12] MEDS ORDERED: FENTANYL REMOVAL DOCUMENTATION MISC XX SCH
[2018-09-12] MEDS ORDERED: fentaNYL 25 MCG/HR PATCH TOP SCH
[2018-09-12 00:13] VITALS: BP 119/66
[2018-09-12] MEDS: MORPHINE 10MG/0.5ML ORAL CONCENTRATE SOLUTION U/D SL PRN ×6 (00:31→21:09)
[2018-09-12] MEDS: SODIUM CHLORIDE 0.9% INJ 10 ML SYR IV SCH (09:11)
--- NOTE | 2018-09-12 19:56 | IPNPDOC ---
Date Seen The patient was seen on 09/12/18. Progress Note SUBJECTIVE: Pt requesting to eat regular food. no nausea, vomiting,fever or chills. requested roxanol. 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 Physical Examination VITALS: PLS SEE BELOW General Exam: Positive: Alert, Cooperative, No Acute Distress Eye Exam: Positive: PERRLA ENT Exam: Positive: Atraumatic Neck Exam: Positive: Supple; Negative: JVD Chest Exam: Positive: Clear to auscultation, Normal air movement Heart Exam: Positive: Rate Normal, Regular Rhythm; Negative: Murmurs Abdomen Exam: Positive: Soft, Tenderness (diffuse), Other (rare loud bowel sounds) Extremity Exam: Positive: Normal pulses; Negative: Edema Skin Exam: Negative: Rash, Breakdown Neuro Exam: Positive: Normal Speech, Strength at 5/5 X4 ext, Normal Tone Psych Exam: Positive: Mental status NL, Mood NL LABORATORY DATA, IMAGING STUDIES, MICROBIOLOGY: PLS SEE BELOW Assessment/Plan Mr. 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 At that time, he underwent small bowel resection. Intra-op he was noted to have widespread peritoneal carcinomatosis. Pt now presents to ER with c/o diffuse abdominal pain that started on Monday after eating spaghetti. He is passing gas; last bowel movement was this morning. CT: chronic small and large bowel obstruction. Findings and goal of care discussed with pt and his sister in the presence of ER nurse. Pt wishes to be on comfort care only, which I think is entirely appropriate and recommended due to lack of any meaningful medical/surgical treatment at this time, except for symptom management. Peritoneal Carcinomatosis - Admit to inpatient for comfort care only - Increase dose of Fentanyl patch from 12 mcg to 25 mcg/72 hr; Morphine, Zofran, Ativan and Scopolamine prn. - Pt requested regular food and prn pain meds. - Hospice consult; Pt is looking forward to home hospice Plan / VTE VTE Prophylaxis Ordered?: No Plan Anticipated Discharge: Hospice (home hospice) Advanced Directives: Comfort Care Measures A-FIB/CHADSVASC A-FIB History Current/History of A-Fib/PAF?: No Current Oral Anticoagulant The: No VS, I&O, 24H, Fishbone Vital Signs/I&O Vital Signs Date Time Temp Pulse Resp B/P (MAP) Pulse Ox O2 Delivery O2 Flow Rate FiO2 09/12/18 18:48 20 09/12/18 00:31 99 09/12/18 00:13 98.6 77 119/66 (83) 09/11/18 18:33 Room Air l I&O- Last 24 Hours up to 6 AM 09/12/18 06:00 Intake Total 0 ml Output Total 0 ml Balance 0 ml JAMAR REILLY MD September 12, 2018 19:56
[2018-09-13] MEDS: MORPHINE 10MG/0.5ML ORAL CONCENTRATE SOLUTION U/D SL PRN ×8 (02:54→21:26)
[2018-09-13] MEDS ORDERED: LORA0.5T11 PO (08:11)
[2018-09-13] MEDS ORDERED: MORP20SO3 PO (08:11)
[2018-09-13] MEDS ORDERED: HYOS125TA PO (08:11)
[2018-09-13] MEDS ORDERED: DURA25DI3 TOP (08:13)
[2018-09-13] MEDS: SODIUM CHLORIDE 0.9% INJ 10 ML SYR IV SCH (09:25)
--- NOTE | 2018-09-13 11:40 | DS.PDOC ---
Discharge Summary General Date of Admission September 11, 2018 at 23:33 Date of Discharge August Discharge Summary DISCHARGE INSTRUCTIONS: PCP TO MANAGE ALL HOSPICE NEEDS AT HOSPITAL DISCHARGE. CODE STATUS: DNR/DNI/COMFORT MEASURES ONLY. DISCHARGED HOME WITH HOSPICE. DISCHARGE DIAGNOSES: PERITONEAL CARCINOMATOSIS DISCHARGE MEDS: PLS SEE BELOW HISTORY OF PRESENTING ILLNESS; 62-year-old male c/o left lower quadrant abdominalpain 6-7 mos ago,CT scan of the abdomen and pelvis in late March 2018 showed nodularity of the omentum suggestive of carcinomatosis. He underwent a colonoscopy and esophagogastroduodenoscopy(EGD) on 04/26/2018, which were normal, laparoscopy: multiple nodules and small plaques of abnormal tissue on the abdominal wall, on the omentum and also involving the mesentery of the small and large bowel. Samples were taken and the pathology was felt to be consistent with adenocarcinoma from a colorectal or appendicular source. The patient had an Odfirq-S-Zuyx placed and saw medical oncology and has been receiving chemotherapy. His most recent treatment was 08/22/2018. On 08/23/2018, thepatient was awakened from sleep by severe epigastric abdominal pain. This became constant and he presented to the emergency department for evaluation at 04:30. He received morphine and antiemetics. He has a fentanyl patch in place and this was left in place. He had some laboratories obtained that showed normal white count and normal blood chemistries. A CT scan of the abdomen :some small bubbles of free air in the upper abdomen with some free fluid and changes of bowel thickening and some nodularity consistent with his known carcinomatosis. Pt underwent laparoscopy and laparotomy by Dr. Mcginnis, general surgery, and was found to have 1 mm perforation through an area of thickened small bowel in the upper midabdomen, clearly markedly involved by tumor with possibly obstruction in this loop as well. During this admission, c/o diffuse abdominal pain that started on Monday after eating spaghetti. He is passing gas; last bowel movement was this morning. CT: chronic small and large bowel obstruction. Findings and goal of care discussed with pt and his sister in the presence of ER nurse. Pt wishes to be on comfort care only, which I think is entirely appropriate and recommended due to lack of any meaningful medical/surgical treatment at this time, except for symptom management. HOSPITAL COURSE: Peritoneal Carcinomatosis - Admitted to inpatient for comfort care only - Increased dose of Fentanyl patch from 12 mcg to 25 mcg/72 hr; Morphine, Zofran, Ativan and Scopolamine prn. - Pt tolerated regular food without nausea, vomiting, abd pain, and prn pain meds provided with pain relief. - Hospice was consulted. 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 PHYSICAL EXAMINATION: VITALS: PLS SEE BELOW General Exam: Positive: Alert, Cooperative, No Acute Distress Eye Exam: Positive: PERRLA ENT Exam: Positive: Atraumatic Neck Exam: Positive: Supple; Negative: JVD Chest Exam: Positive: Clear to auscultation, Normal air movement Heart Exam: Positive: Rate Normal, Regular Rhythm; Negative: Murmurs Abdomen Exam: Positive: Soft, Tenderness (diffuse), Other (rare loud bowel sounds) Extremity Exam: Positive: Normal pulses; Negative: Edema Skin Exam: Negative: Rash, Breakdown Neuro Exam: Positive: Normal Speech, Strength at 5/5 X4 ext, Normal Tone Psych Exam: Positive: Mental status NL, Mood NL LABORATORY DATA, IMAGING STUDIES, MICROBIOLOGY: PLS SEE BELOW TIME SPENT ON HOSPITAL DISCHARGE: 35 MINUTES. Vital Signs/I&Os Vital Signs Date Time Temp Pulse Resp B/P (MAP) Pulse Ox O2 Delivery O2 Flow Rate FiO2 09/13/18 02:54 18 09/12/18 00:31 99 09/12/18 00:13 98.6 77 119/66 (83) 09/11/18 18:33 Room Air I&O- Last 24 Hours up to 6 AM 09/13/18 06:00 Intake Total 1620 ml Output Total 0 ml Balance 1620 ml Discharge Medications Scheduled Citalopram Hydrobromide (Citalopram HBr) 40 Mg Tab, 40 MG PO DAILY, (Reported) Fentanyl (Duragesic) 25 Mcg Patch.td72, 25 MCG TOP Q72H Omeprazole (Omeprazole) 20 Mg Capsule.dr, 20 MG PO DAILY, (Reported) Scheduled PRN Hyoscyamine Sulfate (Hyoscyamine Sulfate) 0.125 Mg Tab.subl, 0.125 MG PO Q4HP PRN for TERMINAL SECRETIONS Use sublingually if unable to swallow Lorazepam (Lorazepam) 0.5 Mg Tablet, 0.5 MG PO Q4HP PRN for ANXIETY/AGITATION Use sublingually if unable to swallow Morphine Sulfate (Morphine Sulfate) 100 Mg/5 Ml Solution, 0.25-1 ML PO Q2H PRN for PAIN OR DYSPNEA Use sublingually if unable to swallow Allergies Coded Allergies: iodine (Verified Allergy, Intermediate, Hives, 07/25/18) JAMAR REILLY MD September 13, 2018 08:20
[2018-09-14] MEDS: MORPHINE 10MG/0.5ML ORAL CONCENTRATE SOLUTION U/D SL PRN ×2 (07:40→09:49)
== END 2018-09-14 11:50 | disposition hospice, home (50) | DRG 862 ==
LOC: EDBD 18:22 → M ED 18:22 → M ED INP 23:33 → M MSPAV 09-12 01:15
PROVIDERS: ADMIT Internal Medicine; ATTEND General Practice
DX: Z51.5 Encounter for palliative care (principal); K56.609 Unspecified intestinal obstruction, unspecified as to partial versus complete obstruction; R64 Cachexia; C78.6 Secondary malignant neoplasm of retroperitoneum and peritoneum; C18.1 Malignant neoplasm of appendix; Z66 Do not resuscitate